=== PATIENT | male | born 1945 | race Two or more races ===

== ENCOUNTER 2018-05-27 17:04 | Inpatient (IN) | payer MEDICARE ==
[~2018-05-27] VITALS: Ht 175.3 cm; Wt 72.6 kg
--- NOTE | 2018-05-27 18:00 | NUR ---
DONAL from [facility] by [employer] unit 230 "increasing confusion-wanders into other peoples room". patient is confused. connected on the monitor. IV access on the RFA g20. On room air, breathing evenly and unlabored. kept comfortable. will continue to monitor accordingly.
--- NOTE | 2018-05-27 18:05 | NUR ---
urine collected and sent to lab.
[2018-05-27 18:38] LABS: BASOPHILS # (AUTO) 0.1 /CMM (0.0-0.2); HEMATOCRIT 45 % (39-51); HEMOGLOBIN 14.6 g/dL (13.5-17.5); LYMPHOCYTES # (AUTO) 1.6 /CMM (0.8-4.8); MEAN CORPUSCULAR HGB CONC 32 g/dl (31.0-36.0); MEAN CORPUSCULAR VOLUME 90 fL (80-96); MONOCYTES # (AUTO) 0.6 /CMM (0.1-1.30); MONOCYTES % (AUTO) 8.8 % (2.0-12.0); NEUTROPHILS # (AUTO) 4.4 /CMM (1.8-8.9); NEUTROPHILS % (AUTO) 64.2 % (43.0-81.0); PLATELET COUNT (AUTO) 197 /CMM (150-450); WHITE BLOOD COUNT (AUTO) 6.9 K/uL (4.3-11.0)
[2018-05-27 18:54] LABS: ALANINE AMINOTRANSFERASE 15 U/L (12-78); ALBUMIN 3.4 g/dL (3.4-5.0); ALCOHOL, BLOOD < 3 mg/dL (0-0); ALKALINE PHOSPHATASE 90 U/L (46-116); ASPARTATE AMINOTRANSFERASE 11 U/L (15-37); BILIRUBIN,DIRECT 0.1 mg/dL (0.0-0.2); BILIRUBIN,TOTAL 0.5 mg/dL (0.2-1.0); CALCIUM, SERUM 8.5 mg/dL (8.5-10.1); CARBON DIOXIDE 31 mmol/L (21-32); CHLORIDE 103 mmol/L (98-107); GLUCOSE 89 mg/dL (74-106); POTASSIUM 4.2 mmol/L (3.5-5.1); SODIUM SERUM 138 mmol/L (136-145); TOTAL PROTEIN, SERUM 7.1 g/dL (6.4-8.2); UREA NITROGEN, BLOOD 28 mg/dL (7-18)
[2018-05-27 19:04] LABS: ACETAMINOPHEN < 2 ug/ml (10-30); SALICYLATE 1.7 mg/dL (2.8-20.0)
[2018-05-27 19:19] LABS: APPEARANCE,URINE Clear (CLEAR); BILIRUBIN,URINE Negative (NEGATIVE); BLOOD, URINE Trace-intact Ery/uL (NEGATIVE); COLOR,URINE Yellow (YELLOW); KETONES,URINE Negative (NEGATIVE); LEUKOCYTE ESTERASE ,URINE Large (NEGATIVE); NITRITE, URINE Positive (NEGATIVE); PROTEIN,URINE Trace mg/dl (NEGATIVE); UGLUCOSE Negative (NEGATIVE); UROBILINOGEN,URINE 0.2 EU/dL (0.2)
[2018-05-27 19:20] LABS: BACTERIA,URINE 4+ /HPF (None Seen); SQUAMOUS EPITHELIAL CELL,UR Few /HPF (None Seen); WBC,URINE 21-50 /HPF (0-3)
--- NOTE | 2018-05-27 19:31 | NUR ---
report given to [facility] nurse for francisco.
--- NOTE | 2018-05-27 19:40 | NUR ---
PT APPEARS TO BE RESTING COMFORTABLY WITH NO S/S OF PAIN OR DISTRESS.
--- NOTE | 2018-05-27 20:10 | NUR ---
ANDREY PEREYRA, IS AT THE BEDSIDE SPEAKING TO THE PT.
[2018-05-27] MEDS ORDERED: LEVOFLOXACIN (750 MG) 750 MG TABLET ONE (20:14)
[2018-05-27] MEDS ORDERED: PROPOFOL 200 MG/20 ML VIAL IV ONE (20:30)
[2018-05-27] MEDS ORDERED: LEVOFLOXACIN (750 MG) 750 MG TABLET PO SCH (20:30)
--- NOTE | 2018-05-27 20:48 | NUR ---
EKG WAS CANCELLED. EKG NOT DONE.
[2018-05-27] MEDS ORDERED: IV NS 0.9% 1,000 ML BAG IV ONE (21:00)
--- NOTE | 2018-05-27 21:00 | NUR ---
MS/RN OPENING NOTES PT RECEIVED FROM ER VIA DANIELLE. A/OX2. ON ROOM AIR, BREATHING EVEN AND UNLABORED. IN NO ACUTE DISTRESS. DENIES SOB/PAIN. IV TO RFA PATENT AND INTACT. ORIENTED PT TO ROOM AND CALL LIGHT. SEMI FOWLERS. BED IN LOW/LOCKED POSITION WITH CALL LIGHT IN REACH. BILATERAL UPPER SIDE RAILS IN PLACE AND BED ALARM ON FOR SAFETY. WILL CONTINUE TO MONITOR
[2018-05-27 21:30] VITALS: BP_SYST 124; BP_DIAS 58; BP_DIAS 85
[2018-05-27] MEDS ORDERED: Z GUARD REMEDY 2 OZ OINT TP PRN (21:30)
[2018-05-27] MEDS ORDERED: ACETAMINOPHEN 325 MG TABLET PO PRN (21:30)
[2018-05-27] MEDS ORDERED: MAG HYDROX/AL HYDROX/SIMETH 30 ML UDC PO PRN (21:30)
[2018-05-27] MEDS ORDERED: DEXTROSE 50%-WATER 50 ML DISP.SYRIN IV PRN (21:30)
[2018-05-27] MEDS ORDERED: ONDANSETRON HCL/PF 4 MG/2 ML VIAL IVP PRN (21:30)
[2018-05-27] MEDS ORDERED: MAGNESIUM HYDROXIDE 30 ML UDC PO PRN (21:30)
--- NOTE | 2018-05-27 21:56 | NUR ---
MS/RN NOTES DR. RG AT BEDSIDE TO ASSESS PT.
[2018-05-27] MEDS ORDERED: ACET325C5 PO (22:15)
[2018-05-27] MEDS ORDERED: FOLI1TAB16 PO (22:15)
[2018-05-27] MEDS ORDERED: DEXT15DR6 EACHEYE (22:15)
[2018-05-27] MEDS ORDERED: LORA-258 PO (22:15)
[2018-05-27] MEDS ORDERED: MULT1TAB73 PO (22:15)
[2018-05-27] MEDS ORDERED: MEMA10TA PO (22:15)
[2018-05-27] MEDS ORDERED: RISP1TAB7 PO (22:15)
[2018-05-27] MEDS ORDERED: MAG30ORA PO (22:15)
[2018-05-27] MEDS ORDERED: TAMS-12 PO (22:15)
--- NOTE | 2018-05-27 22:30 | NUR ---
MS/RN NOTES DR. RG MADE AWARE THAT HOME MEDS WERE INPUTTED Addendum: 05/27/18 at 2249 by LEXX LAWLER RN PER DR. RG, NO NEED FOR IV FLUIDS AT THIS TIME
[2018-05-27] MEDS ORDERED: CEFTRIAXONE 1 G VIAL ONE (22:53)
[2018-05-27] MEDS: BLOOD SUGAR DIAGNOSTIC 1 EACH STRIP IN SCH (22:57)
[2018-05-27] MEDS: CEFTRIAXONE 1 G in IV D5W 50 ML IV SCH (22:57)
[2018-05-28] MEDS: INSULIN REGULAR, HUMAN 100 UNIT/ML 3 ML VIAL SQ PRN (06:44)
[2018-05-28] MEDS: BLOOD SUGAR DIAGNOSTIC 1 EACH STRIP IN SCH ×4 (06:44→22:16)
[2018-05-28 06:59] LABS: BASOPHILS % (AUTO) 0.4 % (0.0-2.0); EOSINOPHILS % (AUTO) 2.5 % (0.0-6.0); HEMATOCRIT 43 % (39-51); LYMPHOCYTES # (AUTO) 1.1 /CMM (0.8-4.8); MEAN CORPUSCULAR HGB CONC 33 g/dl (31.0-36.0); MEAN CORPUSCULAR VOLUME 89 fL (80-96); MONOCYTES # (AUTO) 0.6 /CMM (0.1-1.30); MONOCYTES % (AUTO) 8.1 % (2.0-12.0); NEUTROPHILS # (AUTO) 5.2 /CMM (1.8-8.9); PLATELET COUNT (AUTO) 183 /CMM (150-450); RED BLOOD CELL COUNT(AUTO) 4.79 MIL/uL (4.5-6.0); WHITE BLOOD COUNT (AUTO) 7.1 K/uL (4.3-11.0)
--- NOTE | 2018-05-28 07:00 | NUR ---
MS/RN CLOSING NOTES PT AWAKE, RESTING COMFORTABLY IN BED. A/OX2, CONFUSED. ON ROOM AIR, BREATHING EVEN AND UNLABORED. NO S/S OF SOB, DENIES PAIN, NO NO ACUTE DISTRESS. IV TO RFA PATENT AND INTACT. NO INSULIN COVERAGE DURING SHIFT. SNACKS PROVIDED. KEPT CLEAN AND DRY, TURNED/REPOSITIONED Q2H. NO SIGNIFICANT CHANGES OVERNIGHT. ALL NEEDS MET. REORIENTED PRN. BED IN LOW/LOCKED POSITION WITH CALL LIGHT IN REACH, BILATERAL UPPER SIDE RAILS IN PLACE AND BED ALARM ON. WILL ENDORSE TO DAY SHIFT RN MONTY.
[2018-05-28 07:18] LABS: CALCIUM, SERUM 8.3 mg/dL (8.5-10.1); CARBON DIOXIDE 28 mmol/L (21-32); CHLORIDE 106 mmol/L (98-107); GLUCOSE 80 mg/dL (74-106); MAGNESIUM 1.9 mg/dL (1.8-2.4); PHOSPHORUS 3.2 mg/dL (2.5-4.9); POTASSIUM 4.2 mmol/L (3.5-5.1); SODIUM SERUM 142 mmol/L (136-145); UREA NITROGEN, BLOOD 20 mg/dL (7-18)
[2018-05-28 07:52] LABS: CHOLESTEROL 149 mg/dL (<200); HDL CHOLESTEROL 35 mg/dL (40-60); LDL 102 mg/dL (0-99); TRIGLYCERIDES 116 mg/dL (30-150)
[2018-05-28 08:00] VITALS: BP 128/76
--- NOTE | 2018-05-28 08:00 | NUR ---
MS/RN OPENING NOTES PT A/OX2. ON ROOM AIR, BREATHING EVEN AND UNLABORED. IN NO ACUTE DISTRESS. DENIES SOB/PAIN. IV TO RFA PATENT AND INTACT. SEMI FOWLERS. BED IN LOW/LOCKED POSITION WITH CALL LIGHT IN REACH. BILATERAL UPPER SIDE RAILS IN PLACE AND BED ALARM ON FOR SAFETY. WILL CONTINUE TO MONITOR
--- NOTE | 2018-05-28 08:20 | NUR ---
PT HAS NO BIZARRE BEHAVIOR, LAUGHS BY HIMSELF,COOPERATIVE AND HAS NO SS/ OF PAIN OR DISTRESS.ASSISTED DURING AMBULATION IN THE RESTROOM.SEEN BY PFélix AND AMBULATED WITH FWW WITH STEADY GAIT.
--- NOTE | 2018-05-28 13:00 | NUR ---
NOTIFIED DR PAUL OF PT'S MED RECON- STILL PENDING.
--- NOTE | 2018-05-28 13:07 | NUR ---
PT CONFUSED HAS NO BIZARRE BEHAVIOR, LAUGHS BY HIMSELF,COOPERATIVE AND HAS NO SS/ OF PAIN OR DISTRESS.MORNING ADL CARE DONE.ASSISTED DURING AMBULATION IN THE RESTROOM.SEEN BY P.T. AND AMBULATED WITH FWW WITH STEADY GAIT.
[2018-05-28] MEDS: CLOTRIMAZOLE 1% 15 GM TUBE TP SCH ×2 (15:05→17:47)
[2018-05-28 16:00] VITALS: BP 124/65
[2018-05-28] MEDS: risperiDONE 1 MG TABLET PO SCH (17:46)
--- NOTE | 2018-05-28 18:00 | NUR ---
PT WAS EVALUATED BY DR CHAVEZ AND STATED THAT PT HAS NO S/S OF DEPRESSION AND PT VERBALLY DENIES DEPRESSION WELL.DR CHAVEZ REFUSED TO CALL THE FAMILY AND PRESCRIBE ANTIDEPRESSANT PER FAMILY REQUEST SINCE THE PT REFUSED ANTIDEPRESSANTS WELL. Addendum: 05/28/18 at 1999 by ROBBIN LU RN PLS IGNORE ABOVE NOTES-DOCUMENTED ON THE WRONG PT
--- NOTE | 2018-05-28 18:30 | NUR ---
PT IS RESTING CALMLY IN BED AND TOLERATING MEALS CONSUMING 100% WITH VERY GOOD APPETITE.ENCOURAGED INCREASE FLUID INTAKE.NO BIZARRE BEHAVIOR THROUGHOUT THE SHIFT.WILL CONTINUE TO MONITOR.
--- NOTE | 2018-05-28 19:00 | NUR ---
PT COMFORTABLY RESTING IN BED SURROUNDED BY HER FAMILY MEMBERS.UPDATED FAMILY ON PT'S CONDITION.DENIES PAIN OR DISTRESS.PT WILL BE FOR PT EVAL TOMORROW.WBAT.CALL LIGHT PLACED WITHIN REACH. Addendum: 05/28/18 at 2001 by ROBBIN LU RN PLS IGNORE ABOVE NOTES-DOCUMENTED ON THE WRONG PT
--- NOTE | 2018-05-28 19:30 | NUR ---
RECEIVED PATIENT IN BED AWAKE. AO X 1, VERBALLY RESPONSIVE, UNCLEAR SPEECH. NO ACUTE DISTRESS NOTED. NO SIGN OF PAIN NOTED. IV SITE PATENT, INTACT; FLUSHED. SAFETY REMINDERS GIVEN. ON LOW BED WITH BILATERAL UPPER SIDE RAILS UP. CALL DOCKERY WITHIN EASY REACH. WILL CONTINUE TO MONITOR.
[2018-05-28 20:00] VITALS: BP_SYST 120; BP_SYST 129; BP_DIAS 66
[2018-05-28] MEDS: MEMANTINE HCL 5 MG TABLET PO SCH (21:11)
[2018-05-28] MEDS: CEFTRIAXONE 1 G in IV D5W 50 ML IV SCH (21:11)
[2018-05-28] MEDS: ZOLPIDEM TARTRATE 5 MG TABLET PO PRN (22:04)
--- NOTE | 2018-05-28 22:08 | NUR ---
PATIENT BECAME VERY COMBATIVE, WANTED TO GO OTHER PATIENTS' ROOMS, TRIED TO HIT STAFF. SECURITY CALLED. NOTIFIED DR. RG; WITH NEW ORDER FOR ATIVAN 1 MG PO X 1; NOTED AND CARRIED OUT.
[2018-05-28] MEDS ORDERED: LORAZEPAM 1 MG TABLET PO ONE (22:30)
--- NOTE | 2018-05-29 06:00 | NUR ---
PATIENT ASLEEP, EASILY AROUSABLE. RESPIRATIONS EVEN. NO SIGNS OF PAIN NOTED. DUE MEDS GIVEN WITH NO ASE NOTED. NEEDS ATTENDED. PATIENT KEPT, CLEAN, DRY, AND COMFORTABLE. SAFETY PRECAUTIONS AND COMFORT MEASURES IN PLACE. WILL GIVE REPORT TO DAY SHIFT FOR CONTINUITY OF CARE.
[2018-05-29] MEDS: HYDROCODONE/APAP 5/325MG 1 EACH TABLET PO PRN ×2 (06:34→17:04)
[2018-05-29] MEDS: BLOOD SUGAR DIAGNOSTIC 1 EACH STRIP IN SCH ×4 (06:56→21:25)
[2018-05-29 07:13] LABS: BASOPHILS % (AUTO) 0.6 % (0.0-2.0); EOSINOPHILS % (AUTO) 2.6 % (0.0-6.0); HEMATOCRIT 44 % (39-51); HEMOGLOBIN 14.4 g/dL (13.5-17.5); LYMPHOCYTES # (AUTO) 1.2 /CMM (0.8-4.8); LYMPHOCYTES % (AUTO) 18.5 % (20.0-44.0); MEAN CORPUSCULAR HGB CONC 33 g/dl (31.0-36.0); MEAN CORPUSCULAR VOLUME 89 fL (80-96); MONOCYTES # (AUTO) 0.5 /CMM (0.1-1.30); NEUTROPHILS # (AUTO) 4.6 /CMM (1.8-8.9); NEUTROPHILS % (AUTO) 70.3 % (43.0-81.0); PLATELET COUNT (AUTO) 188 /CMM (150-450); RED BLOOD CELL COUNT(AUTO) 4.97 MIL/uL (4.5-6.0); WHITE BLOOD COUNT (AUTO) 6.5 K/uL (4.3-11.0)
[2018-05-29 07:43] LABS: CALCIUM, SERUM 8.5 mg/dL (8.5-10.1); CARBON DIOXIDE 30 mmol/L (21-32); CHLORIDE 105 mmol/L (98-107); CREATININE 1.1 mg/dL (0.6-1.3); GLUCOSE 81 mg/dL (74-106); MAGNESIUM 1.9 mg/dL (1.8-2.4); PHOSPHORUS 3.7 mg/dL (2.5-4.9); POTASSIUM 4.3 mmol/L (3.5-5.1); SODIUM SERUM 141 mmol/L (136-145); UREA NITROGEN, BLOOD 20 mg/dL (7-18)
[2018-05-29 08:00] VITALS: BP 111/65
--- NOTE | 2018-05-29 08:00 | NUR ---
MS/RN OPENING NOTES PT A/OX2. ON ROOM AIR, BREATHING EVEN AND UNLABORED. IN NO ACUTE DISTRESS.NO S/S OF SOB/PAIN. TALKING TO HIMSELF.IV TO RFA PATENT AND INTACT. SEMI FOWLERS. AMBULATES TO THE TOILET WITH ASSIST DUE TO UNSTEADY GAIT.VOIDED TO THE TOILET WITH INCONTINENT EPISODES OF LARGE AMOUNT OF SOAKED YELLOW URINE DIAPER.BED IN LOW/LOCKED POSITION WITH CALL LIGHT IN REACH. BILATERAL UPPER SIDE RAILS IN PLACE AND BED ALARM ON FOR SAFETY. WILL CONTINUE TO MONITOR
[2018-05-29] MEDS: risperiDONE 1 MG TABLET PO SCH ×2 (08:06→17:05)
[2018-05-29] MEDS: MEMANTINE HCL 5 MG TABLET PO SCH ×2 (08:06→21:28)
[2018-05-29] MEDS: CLOTRIMAZOLE 1% 15 GM TUBE TP SCH ×2 (08:07→17:06)
[2018-05-29] MEDS ORDERED: LORAZEPAM 1 MG TABLET PO PRN (11:30)
[2018-05-29] MEDS ORDERED: MAG HYDROX/AL HYDROX/SIMETH 30 ML UDC PO PRN (16:00)
[2018-05-29] MEDS ORDERED: LORAZEPAM 0.5 MG TABLET PO PRN (16:00)
[2018-05-29] MEDS ORDERED: Medication Not On Formulary EA (Memantine Hcl (Namenda) 1 TAB) PO SCH (17:00)
[2018-05-29] MEDS: FOLIC ACID 1 MG TABLET PO SCH (17:04)
[2018-05-29] MEDS: MULTIVITAMINS,THERAGRAN 1 UDTAB TABLET PO SCH (17:05)
--- NOTE | 2018-05-29 18:01 | NUR ---
PT RESTING COMFORTABLY IN BED.COOPERATIVE AND PLEASANT WITH MEDS.NO BIZARRE EPISODE OCCURRED DURING THE SHIFT.NO S/S OF PAIN OR DISTRESS.WILL CONTINUE TO MONITOR.NEEDS ANTICIPATED AND ATTENDED.CALL LIGHT WITHIN REACH.
--- NOTE | 2018-05-29 19:30 | NUR ---
RECEIVED PATIENT IN BED ASLEEP, EASILY AROUSABLE. AO X 1, RESPONSIVE. NO ACUTE DISTRESS NOTED. NO SIGNS OF PAIN NOTED. IV SITE PATENT, INTACT; FLUSHED. SAFETY REMINDERS GIVEN. ON LOW BED WITH BILATERAL UPPER SIDE RAILS UP. CALL DOCKERY WITHIN EASY REACH. WILL CONTINUE TO MONITOR.
[2018-05-29 20:00] VITALS: BP 94/48
[2018-05-29] MEDS: ZOLPIDEM TARTRATE 5 MG TABLET PO PRN (21:28)
[2018-05-29] MEDS: CEFTRIAXONE 1 G in IV D5W 50 ML IV SCH (21:28)
[2018-05-29 21:49] VITALS: BP 91/48
[2018-05-29] MEDS ORDERED: TAMSULOSIN 0.4 MG CAP.SR.24H PO SCH (22:00)
--- NOTE | 2018-05-30 06:00 | NUR ---
PATIENT ASLEEP, EASILY AROUSABLE. RESPIRATIONS EVEN. NO SIGNS OF PAIN NOTED. NO SYMPTOMS OF HYPER/HYPOGLYCEMIA. DUE MEDS GIVEN WITH NO ASE NOTED. NEEDS ATTENDED. KEPT CLEAN, DRY, AND COMFORTABLE. SAFETY PRECAUTIONS AND COMFORT MEASURES IN PLACE. WILL GIVE REPORT TO DAY SHIFT FOR CONTINUITY OF CARE.
[2018-05-30 06:31] LABS: BASOPHILS % (AUTO) 0.7 % (0.0-2.0); CALCIUM, SERUM 8.3 mg/dL (8.5-10.1); CARBON DIOXIDE 29 mmol/L (21-32); CHLORIDE 105 mmol/L (98-107); EOSINOPHILS % (AUTO) 3.9 % (0.0-6.0); GLUCOSE 87 mg/dL (74-106); HEMATOCRIT 44 % (39-51); HEMOGLOBIN 14.3 g/dL (13.5-17.5); LYMPHOCYTES # (AUTO) 1.2 /CMM (0.8-4.8); LYMPHOCYTES % (AUTO) 19.7 % (20.0-44.0); MAGNESIUM 1.9 mg/dL (1.8-2.4); MEAN CORPUSCULAR HGB CONC 33 g/dl (31.0-36.0); MEAN CORPUSCULAR VOLUME 89 fL (80-96); MONOCYTES # (AUTO) 0.5 /CMM (0.1-1.30); MONOCYTES % (AUTO) 8.7 % (2.0-12.0); NEUTROPHILS # (AUTO) 4.1 /CMM (1.8-8.9); PHOSPHORUS 4.3 mg/dL (2.5-4.9); PLATELET COUNT (AUTO) 172 /CMM (150-450); POTASSIUM 4.2 mmol/L (3.5-5.1); SODIUM SERUM 141 mmol/L (136-145); UREA NITROGEN, BLOOD 26 mg/dL (7-18); WHITE BLOOD COUNT (AUTO) 6.2 K/uL (4.3-11.0)
[2018-05-30] MEDS: BLOOD SUGAR DIAGNOSTIC 1 EACH STRIP IN SCH ×3 (06:42→17:54)
--- NOTE | 2018-05-30 07:34 | NUR ---
MS RN OPENING NOTES RECEIVED PT AWAKE IN BED IN NO ACUTE SIGNS OF DISTRESS. HOB ELEVATED. A/O X1. CALMED AND QUIET WITH NO SIGNS OF PAIN OR DISCOMFORTS OBSERVED AT THIS TIME. ON ROOM AIR, BREATHING EVEN AND UNLABORED. IV ACCESS ON RIGHT HAND INTACT AND PATENT, FLUSHES WELL. SAFETY MEASURES IN PLACE. BED IN LOW LOCKED POSITION WITH SIDE-RAILS UP X2. CALL LIGHT IN REACH. WILL CONTINUE TO MONITOR PT ACCORDINGLY.
[2018-05-30 08:00] VITALS: BP 101/58
[2018-05-30] MEDS: MULTIVITAMINS,THERAGRAN 1 UDTAB TABLET PO SCH (08:26)
[2018-05-30] MEDS: risperiDONE 1 MG TABLET PO SCH ×2 (08:26→16:14)
[2018-05-30] MEDS: FOLIC ACID 1 MG TABLET PO SCH (08:26)
[2018-05-30] MEDS: MEMANTINE HCL 5 MG TABLET PO SCH ×2 (08:26→20:05)
[2018-05-30] MEDS: CLOTRIMAZOLE 1% 15 GM TUBE TP SCH ×2 (08:27→16:14)
[2018-05-30] MEDS ORDERED: RISP1TAB7 PO (10:24)
[2018-05-30] MEDS ORDERED: AMOX-427 PO (10:24)
[2018-05-30] MEDS ORDERED: CLOT15CR35 TP (10:24)
--- NOTE | 2018-05-30 12:24 | NUR ---
RN NOTES PT NOTED WITH BS OF 58 MGDL, REJECTED AND RECHECKED AND WAS 65MGDL. ORANGE JUICE GIVEN AND THEN FOLLOWED WITH HIS LUNCH TRAY AND ENCOURAGED PT TO EAT WELL. WILL CONTINUE TO MONITOR.
[2018-05-30] MEDS: INSULIN REGULAR, HUMAN 100 UNIT/ML 3 ML VIAL SQ PRN ×2 (12:30→17:54)
--- NOTE | 2018-05-30 14:36 | NUR ---
RN NOTES PATIENT FOR DISCHARGE THIS AFTERNOON TO [facility], REPORT GIVEN TO NURSE DUCKWORTH. CALLED AND LEFT MESSAGE TO JV MAZA ( PT'S PERSON TO NOTIFY) AT TEL # [phone]
[2018-05-30 16:00] VITALS: BP 112/63
--- NOTE | 2018-05-30 18:48 | NUR ---
MS RN CLOSING NOTES PT ASLEEP IN BED AT THIS TIME, EASILY AROUSABLE. HOB ELEVATED. ON ROOM AIR, BREATHING EVEN AND UNLABORED. IV ACCESS ON RIGHT HAND INTACT AND PATENT, FLUSHES WELL. ALL SAFETY MEASURES IN PLACE. BED IN LOW LOCKED POSITION WITH SIDE-RAILS UP X2. CALL LIGHT IN REACH. PT SUPPOSED TO BE DISCHARGED BACK TO [facility] AT 1500 BUT THE AMBULANCE BROKE DOWN, JACIEL HARDING STATED THAT AMBULANCE WILL COME TONIGHT TO TRANSPORT PT. WILL ENDORSE TO THEATRE PROFESSOR NURSE TO F/U TRANSPORTATION.
--- NOTE | 2018-05-30 19:45 | NUR ---
MS QUINTANILLA OPENING NOTES: RECEIVED PT ON ROOM AIR AND IS TOLERATING WELL. PT IS A/OX1. PT AWAITING FOR BUTT SAWYER BY AUSTYN. IV REMAINS INTACT. CURRENTLY H/L. BED ALARM ACTIVATED. BED KEPT IN LOW, LOCKED POSITION, AND SIDE RAILS X 2UP. WILL CONTINUE TO MONITOR PT. Addendum: 05/30/18 at 2125 by KAITLYN LOCKE RN PT DRINKING ORANGE JUICE.
--- NOTE | 2018-05-30 20:20 | NUR ---
MS RN NOTES: [id number] 6 MINUTES ETA.
[2018-05-30 20:37] VITALS: BP 92/49
[2018-05-30 20:44] VITALS: BP 115/69
--- NOTE | 2018-05-30 20:44 | NUR ---
MS RN NOTES: CLUB DIRECTOR AT BEDSIDE. IV REMOVED. PT TO GO BACK TO [facility].
--- NOTE | 2018-05-30 20:51 | NUR ---
MS QUINTANILLA NOTES: PT LEFT WITH [facility] TO GO TO [facility]. Addendum: 05/30/18 at 2124 by KAITLYN LOCKE RN BELONGINGS/PACKET TAKEN WITH DIVISION LEADER.
== END 2018-05-30 20:50 | DRG 689 ==
LOC: ER 17:06 → MEDSG2 20:40
PROVIDERS: ATTEND Student in an Organized Health Care Education/Training Program
DX: N39.0 Urinary tract infection, site not specified (principal); G93.41 Metabolic encephalopathy; F03.91 Unspecified dementia, unspecified severity, with behavioral disturbance; F23 Brief psychotic disorder; E11.9 Type 2 diabetes mellitus without complications; I10 Essential (primary) hypertension; J44.9 Chronic obstructive pulmonary disease, unspecified; E78.5 Hyperlipidemia, unspecified; R26.9 Unspecified abnormalities of gait and mobility; L30.4 Erythema intertrigo; R39.2 Extrarenal uremia; B35.6 Tinea cruris; B95.1 Streptococcus, group B, as the cause of diseases classified elsewhere
CPT/HCPCS: 36415; 80048-TC; 80061-TC; 80076-TC; 80305; 81000-TC; 82962-TC; 83735-TC; 84100-TC; 85025-TC; 87081-TC; 87086-TC; G0378; G0480; J0696; J1815; J7030; J7050; J7060

== ENCOUNTER 2018-09-07 15:02 | Inpatient (IN) | payer MEDICARE, MEDICAID ==
[2018-09-07] VITALS (15 sets, daily range): BP systolic 78–145; BP diastolic 37–98
[~2018-09-07] VITALS: Ht 182.9 cm; Wt 77.6 kg
[~2018-09-07 15:02] MED LIST: ACET325C5 PO; AMOX-427 PO; CLOT15CR35 TP; DEXT15DR6 EACHEYE; FOLI1TAB16 PO; LORA-258 PO; MAG30ORA PO; MEMA10TA PO; MULT1TAB73 PO; RISP1TAB7 PO; TAMS-12 PO
--- NOTE | 2018-09-07 15:15 | NUR ---
YORDY, FROM [facility], C/O COUGH WITH CONGESTION SINCE THIS MORNING. TO ER BED 4, O2 SATURATION PER REPORT BEFORE BRINGING PT IN ED WAS 90%, HOOKED TO MONITOR, CHANGED TO GOWN, PROVIDED W WARM BLANKET, AT OXYGEN VIA NC AT 2LPM, O2 SATURATION UPON ARRIVAL AT 94% AWAITING MD FORBES.
--- NOTE | 2018-09-07 15:16 | NUR ---
DR DIAZ AT BEDSIDE
[2018-09-07] MEDS ORDERED: ALBUTEROL FS 2.5 MG/3 ML VIAL.NEB ONE (15:17)
[2018-09-07] MEDS ORDERED: IPRATROPIUM NEB FS 0.5 MG/2.5 ML AMPUL.NEB ONE (15:17)
[2018-09-07 15:27] LABS: BASOPHILS # (AUTO) 0.3 /CMM (0.0-0.2); BASOPHILS % (AUTO) 2.3 % (0.0-2.0); EOSINOPHILS % (AUTO) 0.3 % (0.0-6.0); HEMATOCRIT 41 % (39-51); LYMPHOCYTES # (AUTO) 0.7 /CMM (0.8-4.8); LYMPHOCYTES % (AUTO) 5.1 % (20.0-44.0); MEAN CORPUSCULAR HGB CONC 32 g/dl (31.0-36.0); MEAN CORPUSCULAR VOLUME 91 fL (80-96); MONOCYTES % (AUTO) 7.3 % (2.0-12.0); NEUTROPHILS # (AUTO) 11.2 /CMM (1.8-8.9); PLATELET COUNT (AUTO) 268 /CMM (150-450); RED BLOOD CELL COUNT(AUTO) 4.48 MIL/uL (4.5-6.0); WHITE BLOOD COUNT (AUTO) 13.1 K/uL (4.3-11.0)
[2018-09-07] MEDS ORDERED: POLY15DR40 EACHEYE (15:29)
[2018-09-07] MEDS ORDERED: RISP0.253 PO (15:29)
[2018-09-07] MEDS ORDERED: ALBUTEROL FS 2.5 MG/3 ML VIAL.NEB NEB ONE (15:30)
[2018-09-07] MEDS ORDERED: IPRATROPIUM NEB FS 0.5 MG/2.5 ML AMPUL.NEB NEB ONE (15:30)
--- NOTE | 2018-09-07 15:30 | NUR ---
ONGOING BREATHING TREATMENT
[2018-09-07 15:36] LABS: CALCIUM, SERUM 7.9 mg/dL (8.5-10.1); CARBON DIOXIDE 33 mmol/L (21-32); CREATININE 1.6 mg/dL (0.6-1.3); GLUCOSE 106 mg/dL (74-106); UREA NITROGEN, BLOOD 35 mg/dL (7-18)
[2018-09-07 16:02] LABS: CHLORIDE 101 mmol/L (98-107); POTASSIUM 5.5 mmol/L (3.5-5.1); SODIUM SERUM 137 mmol/L (136-145)
--- NOTE | 2018-09-07 16:09 | NUR ---
VAN WAS CALLED. WAS PAGED
[2018-09-07] MEDS ORDERED: IV NS 0.9% 1,000 ML BAG IV ONE ×2 (16:30→19:00)
[2018-09-07] MEDS ORDERED: VANCOMYCIN 1 GM in IV D5W 250 ML IV ONE (16:30)
[2018-09-07] MEDS ORDERED: PIPERACILLIN /TAZOBACTAM 3.375 G in IV D5W 50 ML IV ONE (16:30)
--- NOTE | 2018-09-07 16:52 | NUR ---
MS BED 116-1 GIVEN
[2018-09-07] MEDS ORDERED: MAG HYDROX/AL HYDROX/SIMETH 30 ML UDC PO PRN ×2 (17:00→17:30)
[2018-09-07] MEDS ORDERED: IV NS 0.9% 1,000 ML IV PRN (17:02)
--- NOTE | 2018-09-07 17:21 | NUR ---
MS BED WAS CHANGED TO 109
--- NOTE | 2018-09-07 17:29 | NUR ---
REPORT GIVEN TO KAYE QUINTANILLA OF MED-SURG UNIT.
[2018-09-07] MEDS ORDERED: ZOLPIDEM TARTRATE 5 MG TABLET PO PRN (17:30)
[2018-09-07] MEDS ORDERED: FEE PK DOSING 1 MIN EA MC ONE (17:30)
[2018-09-07] MEDS ORDERED: MAGNESIUM HYDROXIDE 30 ML UDC PO PRN (17:30)
[2018-09-07] MEDS ORDERED: ONDANSETRON HCL/PF 4 MG/2 ML VIAL IVP PRN (17:30)
[2018-09-07] MEDS ORDERED: ACETAMINOPHEN 325 MG TABLET PO PRN (17:30)
[2018-09-07] MEDS ORDERED: HYDROCODONE/APAP 5/325MG 1 EACH TABLET PO PRN (17:30)
--- NOTE | 2018-09-07 17:30 | NUR ---
REPORT GIVEN TO RAY QUINTANILLA FOR MONTY
--- NOTE | 2018-09-07 17:40 | NUR ---
NOTED WITH DESATURATION OF 84% AT O2 VIA NC AT 3LPM, ABG DONE, CO2 OF 95, DR ORDERED ICU BED FOR PT
--- NOTE | 2018-09-07 17:46 | NUR ---
CALLED [facility] TO PAGE SALES OFFICE ADMINISTRATOR DR FOR AN UPDATE
[2018-09-07 17:55] LABS: ABG BASE EXCESS 0.4 mmol/L; ABG OXYGEN SATURATION 92.5 % (92.0-98.5); ABG PCO2 95.8 mmHg (35.0-45.0); ABG PH 7.144 (7.350-7.450); ABG PO2 79.6 mmHg (75.0-100.0); COHb 0.7 % (0.5-1.5); MetHb 0.6 % (0.0-1.5); O2Hb 91.3 % (94.0-97.0); SITE, ABG Right Radial; VENT MODE, BG Nasal Cannula
--- NOTE | 2018-09-07 18:10 | NUR ---
INFORMED DR DIAZ OF BP AT 81/47, DR DIAZ AT BEDSIDE FOR INTUBATION.
--- NOTE | 2018-09-07 18:15 | NUR ---
RT PT O2 SPO2 WAS DROPPING. PLACED ON NRB. DR DIAZ REQUESTED ABG. ABG DONE AND RESULTS RELAYED TO DR. DIAZ. PER ER MD PLACED PT ON BIPAP. PTS BP WAS DROPPING. ER MD AWARE, ER MD WANTS PT INTUBATED. PT ORALLY INTUBATED WITH 7.5 ETT MARKED @ 23CM LIP. BILATERAL B/S POSITIVE CO2 COLOR CHANGED. VENT SETTINGS PER MD ORDER. VENT ALARMS CHECKED AND AUDIBLE. VENT PLUGGED IN RED OUTLET. AMBU BAG NOTED HOB. WILL ENDORSE TO NOC RT.
--- NOTE | 2018-09-07 18:24 | NUR ---
DR WELLER AT BEDSIDE FOR INSERTION OF CENTRAL LINE.
[2018-09-07] MEDS ORDERED: MIDAZOLAM HCL 100 MG in IV NS 0.9% 80 ML IV PRN ×2 (18:30→19:00)
[2018-09-07] MEDS ORDERED: FENTANYL CITRATE IV 1,250 MCG in IV NS 0.9% 250ML IV PRN (18:30)
--- NOTE | 2018-09-07 18:38 | NUR ---
CENTRAL VENOUS CATHETER @ RIGHT JV, SAÚL
--- NOTE | 2018-09-07 18:41 | NUR ---
GOT ICU BED FROM ALEXANDRE Toney
[2018-09-07] MEDS ORDERED: FENTANYL PF 100MCG/2ML AMPUL IV STA (18:43)
--- NOTE | 2018-09-07 18:59 | NUR ---
WHEELED OUT VIA RNEY FOR CT SCAN
[2018-09-07] MEDS ORDERED: IOHEXOL-350 100 ML VIAL IV ONE (19:00)
[2018-09-07] MEDS ORDERED: NOREPINEPHRINE 8 MG in IV D5W 500 ML IV ONE (19:00)
[2018-09-07] MEDS ORDERED: MIDAZOLAM HCL 2 MG/2ML VIAL IV ONE (19:00)
[2018-09-07] MEDS ORDERED: ROCURONIUM BROMIDE 100 MG/10 ML VIAL IV ONE (19:00)
[2018-09-07] MEDS ORDERED: CT SWABBABLE VALVE TRANS SET 1 EA INFUS.SET MC ONE (19:00)
[2018-09-07] MEDS ORDERED: ETOMIDATE 2 MG/ML VIAL IV ONE ×2 (19:00→22:00)
[2018-09-07] MEDS ORDERED: FENTANYL CITRAT IV 2,500 MCG in IV NS 0.9% 200 ML IV PRN (19:00)
[2018-09-07] MEDS ORDERED: IV NS 0.9% 250 ML IV ONE (19:01)
--- NOTE | 2018-09-07 19:21 | NUR ---
ICU BED CHANGED TO 260
--- NOTE | 2018-09-07 19:30 | NUR ---
ett advanced 1 cm per md verbal order Addendum: 09/07/18 at 2030 by RAAD MURPHY Amended: Links added.
--- NOTE | 2018-09-07 19:31 | NUR ---
REPORT GIVEN TO MINOR QUINTANILLA OF ICU
[2018-09-07] MEDS ORDERED: FENTANYL PF 100MCG/2ML AMPUL ONE (19:34)
[2018-09-07] MEDS ORDERED: MIDAZOLAM HCL 2 MG/2ML VIAL ONE (19:34)
--- NOTE | 2018-09-07 20:10 | NUR ---
pt transported to icu Addendum: 09/07/18 at 2030 by RAAD MCDOWELL RT Amended: Links added.
[2018-09-07] MEDS: PROPOFOL 100 ML IV PRN (20:27)
--- NOTE | 2018-09-07 20:29 | NUR ---
pt transported to ct via ambu bag Addendum: 09/07/18 at 2030 by RAAD MCDOWELL RT Amended: Links added.
--- NOTE | 2018-09-07 20:30 | NUR ---
AUTO TRANSMISSION TECHNICIAN NOTES DR JUDD AT BEDSIDE, NOTIFIED REGARDING PATIENT WAKING UP/AGITATED/BITING ET TUBE. PER DUTCH, START PROPOFOL GTT. ALSO WITH NEW ORDER FOR BILATERAL SOFT WRIST RESTRAINTS FOR PATIENT SAFETY DUE TO RISK FOR SELF EXTUBATION
[2018-09-07] MEDS ORDERED: CEFEPIME 1 GM VIAL ONE (20:45)
[2018-09-07] MEDS: CEFEPIME 2 GM in IV D5W 100 ML IV SCH (20:48)
[2018-09-07] MEDS ORDERED: ENOXAPARIN SODIUM 40 MG/0.4 ML DISP.SYRIN SQ SCH (21:00)
--- NOTE | 2018-09-07 21:00 | NUR ---
DISABILITY INSURANCE CLAIM EXAMINER NOTES FENTANYL AND VERSED IV PUSH (ER ORDERS) NON-ADMINISTERED DUE TO CHANGE IN ORDER FOR PROPOFOL FOR SEDATION. CONFIRMED WITH ER NURSE CHELSEY THAT THESE MEDICATIONS WERE NOT YET ADMINISTERED. ALSO CONFIRMED WITH NURSE BARBOSA THAT RISPERDAL 2MG HAS NOT YET BEEN ADMINISTERED. OVERRIDE FOR RISPERDAL 0.25MG X 1TAB DONE BY BRITTANY CHARGE NURSE JENNIFER, ONLY 7 TABS AVAILABLE IN ICU OMNICELL. WILL ADMINISTER MEDICATION ORDERED
[2018-09-07 21:03] LABS: ABG BASE EXCESS 1.4 mmol/L; ABG OXYGEN SATURATION 98.7 % (92.0-98.5); ABG PH 7.412 (7.350-7.450); ABG PO2 157.6 mmHg (75.0-100.0); AaDO2 151.7 mmHg; COHb 0.7 % (0.5-1.5); MetHb 0.6 % (0.0-1.5); O2Hb 97.4 % (94.0-97.0); PEEP,BG 5 cm H2O; SITE, ABG Right Brachial
[2018-09-07] MEDS ORDERED: risperiDONE 0.25 MG TABLET PO ONE (21:06)
[2018-09-07] MEDS: risperiDONE 0.25 MG TABLET PO SCH (21:09)
[2018-09-07] MEDS ORDERED: ROCURONIUM BROMIDE 50 MG/5 ML IV ONE (22:00)
--- NOTE | 2018-09-07 23:00 | NUR ---
MODEL DRESSER NOTES PATIENT NOTED WITH PERSISTENT HYPOTENSION. LATEST READING 82/57. SAHIL WILL NP MADE AWARE WITH NEW ORDER TO START LEVOPHED GTT. WILL CARRY OUT NEW ORDER AND MONITOR VITAL SIGNS CLOSELY
[2018-09-07] MEDS ORDERED: NOREPINEPHRINE 4 MG/4 ML AMPUL IV ONE (23:13)
[2018-09-07] MEDS: TAMSULOSIN 0.4 MG CAP.SR.24H PO SCH (23:21)
[2018-09-07] MEDS: NOREPINEPHRINE 8 MG in IV D5W 500 ML IV PRN (23:22)
[2018-09-08] VITALS (85 sets, daily range): BP systolic 86–130; BP diastolic 48–79
--- NOTE | 2018-09-08 | NUR ---
OIL BURNER SERVICER AND INSTALLER NOTES FIO2 TITRATED DOWN TO 40% BY RT SHANKAR
[2018-09-08] MEDS ORDERED: VANCOMYCIN 1 GM VIAL ONE (03:22)
[2018-09-08] MEDS: PROPOFOL 100 ML IV PRN ×5 (03:34→21:17)
[2018-09-08] MEDS: VANCOMYCIN 0.75 GM in IV D5W 250 ML IV SCH ×2 (03:35→16:37)
[2018-09-08 04:39] LABS: BASOPHILS # (AUTO) 0.1 /CMM (0.0-0.2); BASOPHILS % (AUTO) 0.5 % (0.0-2.0); EOSINOPHILS % (AUTO) 0.5 % (0.0-6.0); HEMATOCRIT 38 % (39-51); HEMOGLOBIN 12.5 g/dL (13.5-17.5); LYMPHOCYTES # (AUTO) 0.7 /CMM (0.8-4.8); LYMPHOCYTES % (AUTO) 7.2 % (20.0-44.0); MEAN CORPUSCULAR HGB CONC 33 g/dl (31.0-36.0); MEAN CORPUSCULAR VOLUME 89 fL (80-96); MONOCYTES # (AUTO) 0.8 /CMM (0.1-1.30); MONOCYTES % (AUTO) 7.5 % (2.0-12.0); NEUTROPHILS # (AUTO) 8.7 /CMM (1.8-8.9); NEUTROPHILS % (AUTO) 84.3 % (43.0-81.0); PLATELET COUNT (AUTO) 272 /CMM (150-450); WHITE BLOOD COUNT (AUTO) 10.3 K/uL (4.3-11.0)
[2018-09-08 04:57] LABS: CHOLESTEROL 108 mg/dL (<200); HDL CHOLESTEROL 25 mg/dL (40-60); LDL 80 mg/dL (0-99); TRIGLYCERIDES 120 mg/dL (30-150)
[2018-09-08 04:59] LABS: ALANINE AMINOTRANSFERASE 28 U/L (12-78); ALBUMIN 2.4 g/dL (3.4-5.0); ALKALINE PHOSPHATASE 79 U/L (46-116); ASPARTATE AMINOTRANSFERASE 22 U/L (15-37); BILIRUBIN,TOTAL 0.7 mg/dL (0.2-1.0); CALCIUM, SERUM 7.6 mg/dL (8.5-10.1); CARBON DIOXIDE 28 mmol/L (21-32); CHLORIDE 104 mmol/L (98-107); CREATININE 1.3 mg/dL (0.6-1.3); GLUCOSE 163 mg/dL (74-106); MAGNESIUM 2.2 mg/dL (1.8-2.4); PHOSPHORUS 2.3 mg/dL (2.5-4.9); POTASSIUM 4.7 mmol/L (3.5-5.1); SODIUM SERUM 138 mmol/L (136-145); UREA NITROGEN, BLOOD 26 mg/dL (7-18)
--- NOTE | 2018-09-08 06:00 | NUR ---
DIRECTOR OF EMPLOYEE DEVELOPMENT NOTES TROPONIN NOW 1.720. SAHIL WILL PHOTONICS ENGINEER NOTIFIED. PHOTONICS ENGINEER WITH ORDER TO RECHECK TROPONIN IN 6 HOURS. WILL CARRY OUT NEW ORDERS
--- NOTE | 2018-09-08 07:15 | NUR ---
ICU/RN: Pt received, no distress noted, tolerating current vent settings. Easily arousable by light touch. R IJ TLC patent, flushed. Dressing C/D/I. Condom cath to gravity. Safety measures in place, will cont to monitor pt.
[2018-09-08] MEDS: MEMANTINE HCL 5 MG TABLET PO SCH ×2 (08:07→16:20)
[2018-09-08] MEDS: FOLIC ACID 1 MG TABLET PO SCH (08:07)
[2018-09-08] MEDS: risperiDONE 0.25 MG TABLET PO SCH ×2 (08:07→16:20)
--- NOTE | 2018-09-08 08:15 | NUR ---
RT PATIENT REC'D ORALLY INTUBATED 7.5ETT SECURED AT 23CM VIA ANCHOR FAST ON [facility] VENT WITH ORDERED SETTINGS JOHNSON WELL. VENT ALARMS CHECKED AND AUDIBLE. PATIENT SEDATED, APPEARS COMFORTABLE, ZERO SOB NOTED. PATIENT SUCTIONED WITH SMALL AMT OF PALE SEMITHICK SECRETIONS. B/S DIM. AMBU BAG AT [facility]. Addendum: 09/08/18 at 0816 by CARRINGTON ANDREW RT Amended: Links added.
[2018-09-08] MEDS: CEFEPIME 2 GM in IV D5W 100 ML IV SCH ×2 (08:42→21:05)
[2018-09-08 08:48] LABS: ABG BASE EXCESS 1.3 mmol/L; ABG OXYGEN SATURATION 98.2 % (92.0-98.5); ABG PCO2 31.2 mmHg (35.0-45.0); ABG PH 7.499 (7.350-7.450); AaDO2 132.3 mmHg; COHb 0.5 % (0.5-1.5); MetHb 0.6 % (0.0-1.5); O2Hb 97.1 % (94.0-97.0); SITE, ABG Right Radial; VENT MODE, BG AC 18 550 40% +5
--- NOTE | 2018-09-08 09:15 | NUR ---
ICU/RN: Dr Thornton at bedside for pulmo consult; updated on pt status. ABG's reviewed by MD with vent changes ordered. Noted and carried out. Plan for vent weaning tomorrow am.
[2018-09-08] MEDS ORDERED: IV NS 0.9% 500 ML IV ONE (09:30)
[2018-09-08] MEDS: ENOXAPARIN SODIUM 80 MG/0.8 ML DISP.SYRIN SQ SCH ×2 (09:35→21:15)
[2018-09-08] MEDS: NOREPINEPHRINE 8 MG in IV D5W 500 ML IV PRN ×2 (09:36→22:31)
--- NOTE | 2018-09-08 10:30 | NUR ---
ICU/RN:Cardiac consult; Bradycardia Dr Cisneros at bedside for cardiac consult; informed of episodes of bradycardia in 40's, currently on levophed for BP support, s/p 500cc NS bolus. No new orders.
[2018-09-08] MEDS: IV NS 0.9% 1,000 ML IV PRN ×3 (10:59→21:23)
--- NOTE | 2018-09-08 13:40 | NUR ---
RN NOTES CALLED DR SILVA REGARDING TROPONIN LEVEL, 20.023 FROM 1.720. PT ON ASPIRIN SUPP AND LOVENOX 80MF Q12. NO NEW ORDER FROM DR SILVA. WILL CLOSELY MONITOR
[2018-09-08] MEDS: ASPIRIN 300 MG/SUPP.RECT RC SCH (14:54)
[2018-09-08] MEDS ORDERED: K PHOS NEUTRAL 250 MG TABLET PO ONE (15:30)
--- NOTE | 2018-09-08 15:45 | NUR ---
ICU/RN: Bed bath, wound care rendered. Small hard BM noted. Turned and repositioned. Tolerated well.
[2018-09-08] MEDS: IPRATROPIUM NEB FS 0.5 MG/2.5 ML AMPUL.NEB NEB SCH ×2 (15:52→19:54)
[2018-09-08 18:49] LABS: APPEARANCE,URINE CLOUDY (CLEAR); BILIRUBIN,URINE NEGATIVE (NEGATIVE); BLOOD, URINE NEGATIVE Ery/uL (NEGATIVE); COLOR,URINE YELLOW (YELLOW); KETONES,URINE NEGATIVE (NEGATIVE); LEUKOCYTE ESTERASE ,URINE 3+ (NEGATIVE); NITRITE, URINE NEGATIVE (NEGATIVE); PROTEIN,URINE TRACE mg/dl (NEGATIVE); UGLUCOSE NEGATIVE (NEGATIVE); UROBILINOGEN,URINE 0.2 EU/dL (0.2)
[2018-09-08 19:00] LABS: BACTERIA,URINE Moderate /HPF (None Seen); RBC,URINE 0-2 /HPF (0-2); WBC,URINE 81-100 /HPF (0-3)
[2018-09-08 19:01] LABS: SQUAMOUS EPITHELIAL CELL,UR Few /HPF (None Seen)
--- NOTE | 2018-09-08 20:00 | NUR ---
Received patient intubated to vent.Settings well tolerated.Sedated on Diprivan gtt at 40 mcg. No distress noted.SB 43.On Levophed gtt at 12 mcg for BP support and will titrate accordingly. OGT clamped.Condom cath to gravity.IVF NS infusing @ 200 ml/hr x 3L 2nd bag infusing.All iv's infusing via RIJ TLC site intact.Will turn and reposition q 2 hrs.Continue monitoring.
--- NOTE | 2018-09-08 20:49 | NUR ---
RECEIVED PT INTUBATED 7.5 ETT SECURED AT 24CM AT THE LIP. PT TOLERATING VENT SETTINGS. SX'D FOR SML AMT OF THIN WHITE SECRETIONS. VENT ALARMS SET AND AUDIBLE. AMBU BAG AT BEDSIDE. VENT PLUGGED INTO RED OUTLET. WILL CONTINUE TO MONITOR. Addendum: 09/08/18 at 2050 by MARYJANE MORENO RT Amended: Links added.
[2018-09-08] MEDS: TAMSULOSIN 0.4 MG CAP.SR.24H PO SCH (22:02)
[2018-09-09] VITALS (67 sets, daily range): BP systolic 84–138; BP diastolic 37–86
--- NOTE | 2018-09-09 | NUR ---
Patient resting remains SB 44.No acute distress.Turned and repositioned.
[2018-09-09] MEDS: IPRATROPIUM NEB FS 0.5 MG/2.5 ML AMPUL.NEB NEB SCH ×4 (01:21→19:36)
[2018-09-09] MEDS: PROPOFOL 100 ML IV PRN ×2 (01:39→06:37)
[2018-09-09] MEDS: VANCOMYCIN 0.75 GM in IV D5W 250 ML IV SCH ×2 (04:03→16:23)
[2018-09-09 04:10] LABS: BASOPHILS % (AUTO) 0.5 % (0.0-2.0); EOSINOPHILS % (AUTO) 1.9 % (0.0-6.0); HEMATOCRIT 39 % (39-51); HEMOGLOBIN 12.7 g/dL (13.5-17.5); LYMPHOCYTES # (AUTO) 0.7 /CMM (0.8-4.8); LYMPHOCYTES % (AUTO) 7.7 % (20.0-44.0); MEAN CORPUSCULAR HGB CONC 33 g/dl (31.0-36.0); MEAN CORPUSCULAR VOLUME 90 fL (80-96); MONOCYTES # (AUTO) 0.9 /CMM (0.1-1.30); MONOCYTES % (AUTO) 9.2 % (2.0-12.0); NEUTROPHILS # (AUTO) 7.7 /CMM (1.8-8.9); NEUTROPHILS % (AUTO) 80.7 % (43.0-81.0); PLATELET COUNT (AUTO) 278 /CMM (150-450); RED BLOOD CELL COUNT(AUTO) 4.33 MIL/uL (4.5-6.0); WHITE BLOOD COUNT (AUTO) 9.6 K/uL (4.3-11.0)
[2018-09-09 04:23] LABS: ALANINE AMINOTRANSFERASE 29 U/L (12-78); ALBUMIN 2.1 g/dL (3.4-5.0); ALKALINE PHOSPHATASE 72 U/L (46-116); ASPARTATE AMINOTRANSFERASE 48 U/L (15-37); BILIRUBIN,TOTAL 0.6 mg/dL (0.2-1.0); CALCIUM, SERUM 7.3 mg/dL (8.5-10.1); CARBON DIOXIDE 30 mmol/L (21-32); CHLORIDE 106 mmol/L (98-107); CREATININE 0.9 mg/dL (0.6-1.3); GLUCOSE 123 mg/dL (74-106); MAGNESIUM 2.2 mg/dL (1.8-2.4); PHOSPHORUS 3.7 mg/dL (2.5-4.9); POTASSIUM 4.1 mmol/L (3.5-5.1); SODIUM SERUM 138 mmol/L (136-145); TOTAL PROTEIN, SERUM 5.9 g/dL (6.4-8.2); UREA NITROGEN, BLOOD 19 mg/dL (7-18)
[2018-09-09] MEDS: IV NS 0.9% 1,000 ML IV PRN ×2 (06:47→16:42)
[2018-09-09] MEDS: HYDROCORTISONE SOD SUCCINATE 100 MG/2 ML VIAL IV SCH ×4 (06:47→16:21)
--- NOTE | 2018-09-09 07:15 | NUR ---
Patient remains on same vent settings well tolerated.Tele SB 37-55.Levophed gtt infusing at 16 mcg. Diprivan at 40 mcg.Am care done.No acute distress noted.Turned and repositioned.Report given to day shift RN for MONTY.
[2018-09-09] MEDS ORDERED: NOREPINEPHRINE 16 MG in IV NS 0.9% 500 ML IV PRN (07:30)
[2018-09-09] MEDS ORDERED: NOREPINEPHRINE 16 MG in IV D5W 500 ML IV PRN (08:00)
--- NOTE | 2018-09-09 08:00 | NUR ---
ICU/RN: Pt off sedation, confused, able to follow simple commands. Condom cath draining to gravity. Restraint care rendered. Will cont to monitor pt.
--- NOTE | 2018-09-09 08:01 | NUR ---
WOUND CARE CONSULT WOUND CARE RECEIVED CONSULT FOR MARE AT 15, CHIN RASH, SACRUM AND BUTTOCK REDNESS. WOUND CARE WILL DEFER CONSULT AND TREATMENT PLANS TO PLASTIC SURGICAL TEAM WHO ARE CURRENTLY FOLLOWING THIS PATIENT. PATIENT WITH MARE AT 15, ALL PRESSURE ULCER PREVENTION MEASURES ARE NOTED TO BE IN PLACE. WILL SEE PRN.
[2018-09-09] MEDS: ASPIRIN 300 MG/SUPP.RECT RC SCH (08:09)
[2018-09-09] MEDS: FOLIC ACID 1 MG TABLET PO SCH (08:10)
[2018-09-09] MEDS: risperiDONE 0.25 MG TABLET PO SCH ×2 (08:10→16:21)
[2018-09-09] MEDS: ENOXAPARIN SODIUM 80 MG/0.8 ML DISP.SYRIN SQ SCH ×2 (08:15→21:09)
--- NOTE | 2018-09-09 08:26 | NUR ---
pt. is awake and follow commands. vent changes below made for weaning trial per dr. gomez: simv 4 vt 500 ps 12 io2 40% peep +5. Addendum: 09/09/18 at 0828 by ETHAN MORALEZ RT Amended: Links added.
[2018-09-09] MEDS ORDERED: DC PROPOFOL WHEN EXTUBATED XX PRN (09:00)
[2018-09-09] MEDS: MEMANTINE HCL 5 MG TABLET PO SCH ×2 (10:10→16:21)
[2018-09-09] MEDS: CEFEPIME 2 GM in IV D5W 100 ML IV SCH ×2 (10:10→20:30)
[2018-09-09 10:12] LABS: ABG OXYGEN SATURATION 98.5 % (92.0-98.5); ABG PCO2 41.6 mmHg (35.0-45.0); ABG PH 7.334 (7.350-7.450); ABG PO2 148.4 mmHg (75.0-100.0); COHb 0.5 % (0.5-1.5); MetHb 0.5 % (0.0-1.5); O2Hb 97.5 % (94.0-97.0); PEEP,BG 5 cm H2O; SITE, ABG Right Brachial; VT, ABG 500 mL
--- NOTE | 2018-09-09 10:30 | NUR ---
ICU/RN: Pt s/p extubation, tolerated well. Oriented to unit. Confused. Hygienic care rendered. Pt attempts to pull out lines. Restraints reapplied.
--- NOTE | 2018-09-09 10:30 | NUR ---
pt. is awake and follow commands extubated per dr. gomez, placed into 2 lpm o2 flow. v/s post extubation below: spo2 98 - 100% rr 15 - 18 hr 73 - 76 ambu bag @ bedside. Addendum: 09/09/18 at 1033 by ETHAN MORALEZ RT Amended: Links added.
[2018-09-09] MEDS: FLUDROCORTISONE 0.1 MG TABLET NG SCH ×3 (12:49→23:25)
--- NOTE | 2018-09-09 15:10 | NUR ---
ICU/RN: Stool sent for C-diff as ordered. 3 loose, mucoid stools noted. Flexiseal inserted, tolerated well.
--- NOTE | 2018-09-09 18:00 | NUR ---
ICU/RN: Pt assisted with dinner, aspiration precautions in place. Ate 100% of dinner
--- NOTE | 2018-09-09 19:10 | NUR ---
ICU/RN: Pt comfortable on NC, no distress, restless in bed. Restraint care rendered.
--- NOTE | 2018-09-09 19:19 | NUR ---
SKATE BOARDER. INITIAL ASSESSMENT. RECEIVED THE PT REST ON THE BED. AWAKE, ALERT. AGITATED. OXYGEN 3L VIA NASAL CANNULA. SAT 96%, NO ACUTE DISTRESS NOTED. DRY HOUSE WORKER SHOWING NSR. IV RT IJ TLC. IVF NS 100ML/H. HOB ELEVATED. MARTINA SOFF WRIST RESTRAINT CHECKED AND RELEASED. NO INJURY OR REDNESS NOTED, CONDOM CATH INTACT. WILL CONTINUE TO MONITOR VITALS.
[2018-09-09] MEDS: TAMSULOSIN 0.4 MG CAP.SR.24H PO SCH (23:25)
[2018-09-10] VITALS (33 sets, daily range): BP systolic 95–150; BP diastolic 42–109
[2018-09-10] MEDS: IPRATROPIUM NEB FS 0.5 MG/2.5 ML AMPUL.NEB NEB SCH ×4 (01:05→19:49)
--- NOTE | 2018-09-10 03:37 | NUR ---
BUSINESS SOLUTIONS DIRECTOR. AM CARE, ORAL CARE, BED BATH GIVEN. LINEN CHANGED. REMAINING SAME OXYGEN TOLERATED WELL. SAT 96%, NO ACUTE DISTRESS NOTED, KENNEL MANAGER DOG TRACK SHOWING NSR, IV RT IJ. IVF NS 100ML/H, HOB ELEVATED, MARTINA SOFT WRIST RESTRAINT CHECKED AND RELEASED. NO INJURY CT REDNESS NOTED, FC CONDOM CATH INTACT. FLEXA SEAL INTACT. HOB ELEVATED, TURN AND REPOSITION Q2H, WILL CONTINUE TO MONITOR VITALS.
[2018-09-10] MEDS: IV NS 0.9% 1,000 ML IV PRN (04:16)
[2018-09-10 04:47] LABS: ALANINE AMINOTRANSFERASE 24 U/L (12-78); ALBUMIN 2.1 g/dL (3.4-5.0); ALKALINE PHOSPHATASE 63 U/L (46-116); ASPARTATE AMINOTRANSFERASE 22 U/L (15-37); BILIRUBIN,TOTAL 0.5 mg/dL (0.2-1.0); CALCIUM, SERUM 7.6 mg/dL (8.5-10.1); CARBON DIOXIDE 27 mmol/L (21-32); CHLORIDE 111 mmol/L (98-107); GLUCOSE 85 mg/dL (74-106); MAGNESIUM 2.3 mg/dL (1.8-2.4); PHOSPHORUS 3.2 mg/dL (2.5-4.9); POTASSIUM 3.6 mmol/L (3.5-5.1); SODIUM SERUM 145 mmol/L (136-145); TOTAL PROTEIN, SERUM 5.8 g/dL (6.4-8.2); UREA NITROGEN, BLOOD 15 mg/dL (7-18)
[2018-09-10] MEDS: VANCOMYCIN 0.75 GM in IV D5W 250 ML IV SCH (05:09)
[2018-09-10] MEDS: FLUDROCORTISONE 0.1 MG TABLET NG SCH ×4 (05:09→23:24)
--- NOTE | 2018-09-10 07:15 | NUR ---
RECEIVED PATIENT A/OX1 TO SELF. CALM AND COOPERATIVE. RESTLESS. WILL FOLLOW SIMPLE COMMANDS. ON ISOLATION TO R/O C-DIFF. PATIENT IV SITE C/D/I/P. TELE NSR. ON LOW FLOW 02NC NO SOB, DIFFICULTY BREATHING. NO S/S DISTRESS NOTED. SAFETY, SKIN, ASPIRATION PRECAUTIONS IN PLACE AND WILL MONITOR.
[2018-09-10] MEDS: CEFEPIME 2 GM in IV D5W 100 ML IV SCH ×2 (08:46→21:09)
[2018-09-10] MEDS: HYDROCORTISONE SOD SUCCINATE 100 MG/2 ML VIAL IV SCH ×3 (08:46→17:11)
[2018-09-10] MEDS: FOLIC ACID 1 MG TABLET PO SCH (08:47)
[2018-09-10] MEDS: Z GUARD REMEDY 2 OZ OINT TP PRN ×2 (08:47→17:11)
[2018-09-10] MEDS: ATORVASTATIN 10 MG TABLET PO SCH (08:47)
[2018-09-10] MEDS: MEMANTINE HCL 5 MG TABLET PO SCH ×2 (08:47→17:10)
[2018-09-10] MEDS: ASPIRIN 81 MG TAB.CHEW PO SCH (08:47)
[2018-09-10] MEDS: risperiDONE 0.25 MG TABLET PO SCH ×2 (08:47→17:11)
[2018-09-10] MEDS: CARVEDILOL 3.125 MG TABLET PO SCH ×2 (08:48→21:06)
[2018-09-10] MEDS: ASPIRIN 300 MG/SUPP.RECT RC SCH (09:00)
--- NOTE | 2018-09-10 18:40 | NUR ---
PATIENT TRANSFERRED TO TELE BED 103 IN STABLE CONDITION. ALL DUE MEDS GIVEN AND ALL NEEDS MET. PATIENT STABLE ON LOW FLOW NC. DIAPERED. IV SITE C/D/I/P. TELE NSR. NO RESTRAINTS IN PLACE AND COOPERATIVE. SKIN, SAFETY, ASPIRATION PRECAUTIONS IN PLACE AND MONITORED THROUGHOUT DAY. NO ADVERSE EVENTS. NO SOB, DIFFICULTY BREATHING.
--- NOTE | 2018-09-10 18:45 | NUR ---
SKEIN TIER NOTES: Rec'd report from Jose QUINTANILLA. Routine assessment done. Pt kept well rested & comfortable. Will endorse to PM RN for MONTY.
--- NOTE | 2018-09-10 20:00 | NUR ---
Received patient A/O X1 otherwise confused and disoriented.Reoriented.Safety measures implemented. Bed locked,low position,side rails up and bed alarm on.Call light within easy reach.VS stable.Tele SR 70'S-80'S.Denies pain.Pulled out condom cath and flexi seal came out when he cough.kept clean and dry.RIJ TLC intact.Turned and repositioned.Continue monitoring.
[2018-09-10] MEDS ORDERED: IV NS 0.9% 250 ML IV ONE (21:00)
[2018-09-10] MEDS: TAMSULOSIN 0.4 MG CAP.SR.24H PO SCH (21:23)
[2018-09-11] VITALS: BP 121/69
--- NOTE | 2018-09-11 | NUR ---
Patient resting in no acute distress.VS stable.Turned ans repositioned.
[2018-09-11] MEDS: IPRATROPIUM NEB FS 0.5 MG/2.5 ML AMPUL.NEB NEB SCH ×4 (01:04→19:15)
[2018-09-11 04:00] VITALS: BP 164/48
[2018-09-11] MEDS: FLUDROCORTISONE 0.1 MG TABLET NG SCH ×3 (05:17→16:47)
[2018-09-11 06:57] LABS: BASOPHILS % (AUTO) 0.2 % (0.0-2.0); EOSINOPHILS % (AUTO) 0.2 % (0.0-6.0); HEMATOCRIT 36 % (39-51); HEMOGLOBIN 11.5 g/dL (13.5-17.5); LYMPHOCYTES % (AUTO) 10.3 % (20.0-44.0); MEAN CORPUSCULAR HGB CONC 32 g/dl (31.0-36.0); MEAN CORPUSCULAR VOLUME 90 fL (80-96); MONOCYTES # (AUTO) 0.7 /CMM (0.1-1.30); MONOCYTES % (AUTO) 7.3 % (2.0-12.0); NEUTROPHILS # (AUTO) 8.1 /CMM (1.8-8.9); PLATELET COUNT (AUTO) 274 /CMM (150-450); RED BLOOD CELL COUNT(AUTO) 3.98 MIL/uL (4.5-6.0); WHITE BLOOD COUNT (AUTO) 9.9 K/uL (4.3-11.0)
[2018-09-11 07:16] LABS: CARBON DIOXIDE 27 mmol/L (21-32); CHLORIDE 112 mmol/L (98-107); GLUCOSE 83 mg/dL (74-106); MAGNESIUM 2.5 mg/dL (1.8-2.4); PHOSPHORUS 3.5 mg/dL (2.5-4.9); SODIUM SERUM 146 mmol/L (136-145); UREA NITROGEN, BLOOD 16 mg/dL (7-18)
--- NOTE | 2018-09-11 07:17 | NUR ---
Patient resting no significant change noted during the night.AM care done.VS stable.Safety precaution maintained.Report given to day shift RN for MONTY.
[2018-09-11 08:00] VITALS: BP 114/62
[2018-09-11] MEDS: FOLIC ACID 1 MG TABLET PO SCH (08:04)
[2018-09-11] MEDS: MEMANTINE HCL 5 MG TABLET PO SCH ×2 (08:05→16:47)
[2018-09-11] MEDS: ASPIRIN 81 MG TAB.CHEW PO SCH (08:05)
[2018-09-11] MEDS: ATORVASTATIN 10 MG TABLET PO SCH (08:05)
[2018-09-11] MEDS: ASPIRIN 300 MG/SUPP.RECT RC SCH (08:05)
[2018-09-11] MEDS: CARVEDILOL 3.125 MG TABLET PO SCH (08:05)
[2018-09-11] MEDS: CEFEPIME 2 GM in IV D5W 100 ML IV SCH (08:06)
[2018-09-11] MEDS: HYDROCORTISONE SOD SUCCINATE 100 MG/2 ML VIAL IV SCH (08:39)
[2018-09-11] MEDS: risperiDONE 1 MG TABLET PO SCH ×2 (08:39→16:47)
--- NOTE | 2018-09-11 10:45 | NUR ---
RN NOTE 0715: Received patient awake, alert to self. Follows some commands, poor concentration. Noted with mumbling words and coughing at times. 98% on 2LPM of O2 via NC. RIJ TLC intact. 0830: Tolerated pureed diet. AM meds given. 1000: S/E by Dr. Cisneros, with order to DC tele and transfer to Med surg status. 1045: No any significant changes noted at this time. Kept clean, warm and dry. Needs attended.
[2018-09-11 16:00] VITALS: BP 125/84
--- NOTE | 2018-09-11 16:59 | NUR ---
RN NOTE 1615: S/E by Wily BATISTA, aware that patient was seen by psyche, awaiting psyche notes. Patient still disoriented and unable to give consents.
[2018-09-11] MEDS ORDERED: HYDROCORTISONE SOD SUCCINATE 100 MG/2 ML VIAL IV SCH (17:00)
[2018-09-11] MEDS ORDERED: CARV3.122 PO (17:30)
[2018-09-11] MEDS ORDERED: CEFE2PIG2 IV (17:30)
[2018-09-11] MEDS ORDERED: ATOR10TA PO (17:30)
[2018-09-11] MEDS ORDERED: ASPI-1169 PO (17:30)
[2018-09-11] MEDS ORDERED: PRED10TA PO (17:30)
[2018-09-11] MEDS ORDERED: PRED5TAB PO (17:30)
[2018-09-11] MEDS ORDERED: PRED20TA PO (17:30)
--- NOTE | 2018-09-11 18:43 | NUR ---
RN NOTE To be discharged back to facility, left message to Kellen Carpio, no call back.
--- NOTE | 2018-09-11 18:55 | NUR ---
Rn NOTE Report given to Qing in [facility].
--- NOTE | 2018-09-11 19:05 | NUR ---
Received patient ,awake,alert but confuse and restless in bed,follows simple commands on and off,not in nay distress,with o2 via NC @ 4 L/min.Triple Lumen catheter @ right IJ,dressing dry and intact. Awaiting transport,[facility].
[2018-09-11 20:00] VITALS: BP 139/72
[2018-09-11 20:18] VITALS: BP 125/84
--- NOTE | 2018-09-11 20:28 | NUR ---
Transport here to apple picking supervisor patient brief report given .Patient remains stable,awake,alert,not in any distress.
--- NOTE | 2018-09-11 20:35 | NUR ---
Patient discharged.Stable
== END 2018-09-11 21:30 | DRG 871 ==
LOC: ER 15:06 → MEDSG1 17:08 → ICU 19:23 → TELE1 09-10 18:42 → MEDSG1 09-11 09:28
PROVIDERS: ADMIT Internal Medicine; ATTEND Hospitalist
PROC: 5A1945Z Respiratory Ventilation, 24-96 Consecutive Hours (ICD-10-PCS; principal; 2018-09-07)
PROC: 0BH17EZ Insertion of Endotracheal Airway into Trachea, Via Natural or Artificial Opening (ICD-10-PCS; 2018-09-07)
PROC: 02HV33Z Insertion of Infusion Device into Superior Vena Cava, Percutaneous Approach (ICD-10-PCS; 2018-09-07)
PROC: B548ZZA Ultrasonography of Superior Vena Cava, Guidance (ICD-10-PCS; 2018-09-07)
DX: A41.9 Sepsis, unspecified organism (principal); J69.0 Pneumonitis due to inhalation of food and vomit; J96.02 Acute respiratory failure with hypercapnia; J96.01 Acute respiratory failure with hypoxia; N17.0 Acute kidney failure with tubular necrosis; G93.41 Metabolic encephalopathy; E43 Unspecified severe protein-calorie malnutrition; I21.4 Non-ST elevation (NSTEMI) myocardial infarction; R65.21 Severe sepsis with septic shock; N39.0 Urinary tract infection, site not specified; E27.40 Unspecified adrenocortical insufficiency; E86.9 Volume depletion, unspecified; E87.5 Hyperkalemia; F03.90 Unspecified dementia, unspecified severity, without behavioral disturbance, psychotic disturbance, mood disturbance, and anxiety; F20.9 Schizophrenia, unspecified; I25.10 Atherosclerotic heart disease of native coronary artery without angina pectoris; I25.2 Old myocardial infarction; J44.9 Chronic obstructive pulmonary disease, unspecified; I50.9 Heart failure, unspecified; I11.0 Hypertensive heart disease with heart failure; E11.9 Type 2 diabetes mellitus without complications; R21 Rash and other nonspecific skin eruption; L98.8 Other specified disorders of the skin and subcutaneous tissue; E88.09 Other disorders of plasma-protein metabolism, not elsewhere classified; Z68.23 Body mass index [BMI] 23.0-23.9, adult
CPT/HCPCS: 31720; 36415; 36600; 70450-TC; 71045-TC; 80048-TC; 80053-TC; 80061-TC; 80202-TC; 81000-TC; 82533; 82803-TC; 83605-TC; 83735-TC; 84100-TC; 84484-TC; 85025-TC; 85730-TC; 87040-TC; 87070-TC; 87081-TC; 87086-TC; 87400; 93307-TC; 94002-TC; 94003-TC; 94640-TC; 94760-TC; 94799-TC; 99082-TC; A4217; A4349; C1751; G0378; J0692; J1650; J1720; J2250; J2543; J3010; J3370; J3490; J7030; J7040; J7050; J7060; Q9967

== ENCOUNTER 2019-05-11 15:32 | Inpatient (IN) | payer MEDICARE, OTHER ==
[~2019-05-11] VITALS: Ht 165.1 cm; Wt 68.5 kg
[~2019-05-11 15:32] MED LIST changes: -ACET325C5 PO; +ACET325C7 PO; -AMOX-427 PO; +ASPI-1169 PO; +ATOR10TA PO; +CARV3.122 PO; +CEFE2PIG2 IV; -CLOT15CR35 TP; -DEXT15DR6 EACHEYE; -LORA-258 PO; +POLY15DR40 EACHEYE; +PRED10TA PO; +PRED20TA PO; +PRED5TAB PO; +RISP0.253 PO; -RISP1TAB7 PO
--- NOTE | 2019-05-11 15:40 | NUR ---
BIBPA, AAOX4. AMBULATORY. SENT BY SNF FOR AGITATION, AGGRESSION, HITTING STAFF. PT PLACED ON MONITOR AND PULSE OX. PT DENIES ANY PAIN, -SI,-HI. RR EVEN AND UNLABORED. MD AT BEDSIDE
[2019-05-11] MEDS ORDERED: ASPI-1169 PO (15:45)
[2019-05-11] MEDS ORDERED: MULT-24 PO (15:45)
[2019-05-11] MEDS ORDERED: ATOR10TA PO (15:45)
--- NOTE | 2019-05-11 15:50 | NUR ---
PT IN BED. VSS.
--- NOTE | 2019-05-11 15:59 | NUR ---
URINE COLLECTED AND SENT TO LAB
--- NOTE | 2019-05-11 15:59 | NUR ---
HEAD TEACHER AT BEDSIDE FOR LAB COLELCTION
[2019-05-11 16:09] LABS: BASOPHILS # (AUTO) 0.1 /CMM (0.0-0.2); BASOPHILS % (AUTO) 0.7 % (0.0-2.0); EOSINOPHILS % (AUTO) 3.6 % (0.0-6.0); HEMATOCRIT 45 % (39-51); HEMOGLOBIN 14.6 g/dL (13.5-17.5); LYMPHOCYTES # (AUTO) 1.5 /CMM (0.8-4.8); MEAN CORPUSCULAR HGB CONC 32 g/dl (31.0-36.0); MEAN CORPUSCULAR VOLUME 91 fL (80-96); MONOCYTES # (AUTO) 0.7 /CMM (0.1-1.30); MONOCYTES % (AUTO) 8.3 % (2.0-12.0); NEUTROPHILS # (AUTO) 6.1 /CMM (1.8-8.9); NEUTROPHILS % (AUTO) 70.4 % (43.0-81.0); PLATELET COUNT (AUTO) 213 /CMM (150-450); RED BLOOD CELL COUNT(AUTO) 4.99 MIL/uL (4.5-6.0); WHITE BLOOD COUNT (AUTO) 8.6 K/uL (4.3-11.0)
[2019-05-11 16:10] LABS: BILIRUBIN,URINE Negative (NEGATIVE); BLOOD, URINE Small Ery/uL (NEGATIVE); COLOR,URINE Yellow (YELLOW); KETONES,URINE Negative (NEGATIVE); LEUKOCYTE ESTERASE ,URINE Small (NEGATIVE); NITRITE, URINE Negative (NEGATIVE); PROTEIN,URINE Negative (NEGATIVE); UGLUCOSE Negative (NEGATIVE); UROBILINOGEN,URINE 0.2 EU/dL (0.2)
[2019-05-11 16:15] LABS: APPEARANCE,URINE SLIGHTLY HAZY (CLEAR)
[2019-05-11 16:27] LABS: CALCIUM, SERUM 8.8 mg/dL (8.5-10.1); CARBON DIOXIDE 33 mmol/L (21-32); CHLORIDE 104 mmol/L (98-107); GLUCOSE 83 mg/dL (74-106); POTASSIUM 4.1 mmol/L (3.5-5.1); SODIUM SERUM 141 mmol/L (136-145); UREA NITROGEN, BLOOD 24 mg/dL (7-18)
[2019-05-11 16:32] LABS: BACTERIA,URINE Few /HPF (None Seen); SQUAMOUS EPITHELIAL CELL,UR Few /HPF (None Seen)
[2019-05-11 16:36] LABS: ALANINE AMINOTRANSFERASE 22 U/L (12-78); ALBUMIN 3.2 g/dL (3.4-5.0); ALCOHOL, BLOOD < 3 mg/dL (0-0); ALKALINE PHOSPHATASE 82 U/L (46-116); ASPARTATE AMINOTRANSFERASE 17 U/L (15-37); BILIRUBIN,DIRECT 0.1 mg/dL (0.0-0.2); BILIRUBIN,TOTAL 0.7 mg/dL (0.2-1.0)
[2019-05-11 16:46] LABS: ACETAMINOPHEN 0 ug/ml (10-30); SALICYLATE 0.9 mg/dL (2.8-20.0)
--- NOTE | 2019-05-11 16:55 | NUR ---
PT IN BED COMFORTABLY. NO ACUTE DISTRESS. VSS.
--- NOTE | 2019-05-11 17:39 | NUR ---
REPROT GIVEN TO MARCIANO QUINTANILLA
[2019-05-11] MEDS ORDERED: MAGNESIUM HYDROXIDE 30 ML UDC PO PRN (22:00)
[2019-05-11] MEDS ORDERED: MAG HYDROX/AL HYDROX/SIMETH 30 ML UDC PO PRN (22:00)
[2019-05-11] MEDS ORDERED: ACETAMINOPHEN 325 MG TABLET PO PRN (22:00)
[2019-05-11] MEDS ORDERED: BLOOD SUGAR DIAGNOSTIC 1 EACH STRIP IN ONE (22:00)
[2019-05-12 00:11] VITALS: BP 130/67
--- NOTE | 2019-05-12 00:20 | NUR ---
GPS RN NOTES: ADMITTED 73 Y/O MALE. PT ADMITTED FROM [facility] ER TO GPS ON A 5150. PER JENNIFER PT BECAME AGITATED, AGGRESSIVE, AND HITTING STAFF AT THE FACILITY HE WAS AT [facility]. UPON FACE TO FACE ASSESSMENT PT IS ALERT/ ORIENTED X1-2, NEEDY, TALKS TO SELF, OCCASIONALLY LAUGHS AT SELF, CONFUSED, MUMBLING, DISORGANIZED, AND STARES BLANKLY. PT STATED, "I DONT KNOW WHY IM HERE." PT DENIES SI/HI AT THIS TIME. MN REFUSED TO SIGN CONSENT PAPERS DUE TO CONDITION. ENVIRONMENTAL SAFETY CHECK DONE Q 15 MIN. ENCOURAGE TO VERBALIZE FEELINGS AND CONCERNS TO STAFF. ORIENTED TO THE UNIT. HAND UMBRELLA TIPPER MD AWARE AND NOTIFIED OF ADMISSION. BELONGING AND CONTRABAND WERE DONE AND CHECKED. NURSING ASSESSMENT DONE. PICTURE TAKEN OF PT AND PUT IN CHART. PT RIGHTS DISCUSS BY RESEARCH SPECIALIST. PROVIDED PT WITH HANDBOOK AND MED GUIDE. VITALS SIGNS TAKEN WNL. NO S/S OF RESP DISTRESS. BREATHING EVEN AND UNLABORED. INITIAL BS CHECKED DONE. CONTINUE TO MONITOR.
[2019-05-12] MEDS ORDERED: Medication Not On Formulary EA (Acetaminophen (Tylenol) 650 MG) PO PRN (00:30)
[2019-05-12] MEDS ORDERED: MAG HYDROX/AL HYDROX/SIMETH 30 ML UDC PO PRN (00:30)
--- NOTE | 2019-05-12 06:32 | NUR ---
[facility] RN NOTES: PT REFUSED LABS. EXPLAIN RISKS AND BENEFITS X3 STILL REFUSED. PT STATED, "OUT!" LABORATORY WILL COME BACK AND RETRY AGAIN. ENDORSED TO THE AM SHIFT TO F/U. CONTINUE TO MONITOR.
[2019-05-12 08:00] VITALS: BP 124/65
[2019-05-12] MEDS: MEMANTINE HCL 5 MG TABLET PO SCH ×2 (08:36→16:36)
[2019-05-12] MEDS: ASPIRIN 81 MG TAB.CHEW PO SCH (08:36)
[2019-05-12] MEDS: FOLIC ACID 1 MG TABLET PO SCH (08:36)
[2019-05-12] MEDS: MULTIVITAMINS,THERAGRAN 1 UDTAB TABLET PO SCH (08:36)
[2019-05-12] MEDS ORDERED: risperiDONE 0.25 MG TABLET PO SCH (09:00)
[2019-05-12] MEDS: POLYVINYL ALCOHOL 15 ML BOTTLE OP SCH ×3 (09:08→16:35)
[2019-05-12] MEDS: LORAZEPAM 0.5 MG TABLET PO PRN (09:31)
--- NOTE | 2019-05-12 09:39 | NUR ---
RN NOTE- PT YELLING IN ROOM, ANXIOUS. ATIVAN 0.5 MG GIVEN. MONITORING BEHAVIOR
--- NOTE | 2019-05-12 09:51 | NUR ---
WOUND CARE CONSULT: RECEIVED CONSULT FOR ABDOMEN REDNESS. CURRENT MARE SCORE IS 23. PT IS EXTREMELY AGITATED. UNABLE TO DO SKIN ASSESSMENT AT THIS TIME. WILL SEE PRN.
--- NOTE | 2019-05-12 11:30 | NUR ---
Public Guardian Contact: SW called the pts public guardian, Kellen ([phone]), and her voicemail was full so the SW was unable to leave a message.
--- NOTE | 2019-05-12 11:31 | NUR ---
Public Guardian Contact: ANNY called the Public Guardian front desk clerk ([phone]) and spoke to Radha who transferred the phone to the unit duty worker who was Ms. Vyas. ANNY asked for basic information on the pt and she stated that the pt was born in [place] and had a family member by the name of Franco Rm and was unable to provide any more information.
--- NOTE | 2019-05-12 11:32 | NUR ---
Facility Contact: ANNY called [facility] ([phone]) and spoke to lAbert from [employer] to discuss the pts information and he stated that they do not have any information other than he was at [facility] one year ago and that he has a public guardian by the name of Kellen.
--- NOTE | 2019-05-12 11:33 | NUR ---
Facility Contact: ANNY contacted CJ ([phone]) from [facility] and confirmed that the pt can return to the facility upon discharge from the hospital.
--- NOTE | 2019-05-12 11:37 | NUR ---
Public Guardian Contact: ANNY called the Public Guardian front office supervisor ([phone]) and spoke to Radha who transferred the phone to the unit duty worker who was Ms. Vyas. ANNY asked her for the pts detain and treat to be faxed to the nurses station fax number at [phone].
--- NOTE | 2019-05-12 12:18 | NUR ---
Initial Discharge Plan: Pt currently resides at [facility] located at [address] [place] [id number]; ([phone]). Per CJ from the facility, the pt can return. ANNY will work with the pt, the public guardian and the MD regarding appropriate discharge planning. SW will form a safe and proper discharge.
[2019-05-12] MEDS: risperiDONE 1 MG TABLET PO SCH ×2 (12:22→16:35)
[2019-05-12] MEDS: DIVALPROEX SODIUM 125 MG CAP.SPRINK PO SCH ×2 (12:22→16:36)
[2019-05-12 14:18] LABS: CHOLESTEROL 100 mg/dL (<200); HDL CHOLESTEROL 32 mg/dL (40-60); LDL 61 mg/dL (0-99); TRIGLYCERIDES 69 mg/dL (30-150)
[2019-05-12 16:00] VITALS: BP 143/75
[2019-05-12 21:09] VITALS: BP 109/57
[2019-05-12] MEDS: ATORVASTATIN 10 MG TABLET PO SCH (21:29)
[2019-05-12] MEDS: TAMSULOSIN 0.4 MG CAP.SR.24H PO SCH (21:29)
[2019-05-12] MEDS: TEMAZEPAM 7.5 MG CAPSULE PO PRN (23:29)
[2019-05-13 08:00] VITALS: BP 151/77
[2019-05-13] MEDS: risperiDONE 1 MG TABLET PO SCH ×3 (08:59→16:34)
[2019-05-13] MEDS: FOLIC ACID 1 MG TABLET PO SCH (09:00)
[2019-05-13] MEDS: ASPIRIN 81 MG TAB.CHEW PO SCH (09:00)
[2019-05-13] MEDS: MEMANTINE HCL 5 MG TABLET PO SCH ×2 (09:00→16:34)
[2019-05-13] MEDS: DIVALPROEX SODIUM 125 MG CAP.SPRINK PO SCH ×3 (09:00→16:33)
[2019-05-13] MEDS: MULTIVITAMINS,THERAGRAN 1 UDTAB TABLET PO SCH (09:03)
[2019-05-13] MEDS: POLYVINYL ALCOHOL 15 ML BOTTLE OP SCH ×3 (09:03→16:34)
[2019-05-13 16:00] VITALS: BP 143/57
[2019-05-13 20:45] VITALS: BP 114/70
[2019-05-13] MEDS: TEMAZEPAM 7.5 MG CAPSULE PO PRN (21:54)
[2019-05-13] MEDS: ATORVASTATIN 10 MG TABLET PO SCH (21:54)
[2019-05-13] MEDS: TAMSULOSIN 0.4 MG CAP.SR.24H PO SCH (21:54)
[2019-05-14 08:00] VITALS: BP 108/64
[2019-05-14] MEDS: ASPIRIN 81 MG TAB.CHEW PO SCH (08:22)
[2019-05-14] MEDS: risperiDONE 1 MG TABLET PO SCH ×3 (08:22→17:15)
[2019-05-14] MEDS: FOLIC ACID 1 MG TABLET PO SCH (08:22)
[2019-05-14] MEDS: MULTIVITAMINS,THERAGRAN 1 UDTAB TABLET PO SCH (08:22)
[2019-05-14] MEDS: DIVALPROEX SODIUM 125 MG CAP.SPRINK PO SCH ×3 (08:22→17:15)
[2019-05-14] MEDS: MEMANTINE HCL 5 MG TABLET PO SCH ×2 (08:23→17:16)
[2019-05-14] MEDS: POLYVINYL ALCOHOL 15 ML BOTTLE OP SCH ×3 (09:00→17:00)
[2019-05-14 16:00] VITALS: BP 119/63
[2019-05-14 20:00] VITALS: BP 120/68
[2019-05-14 20:40] VITALS: BP 120/68
[2019-05-14] MEDS: TAMSULOSIN 0.4 MG CAP.SR.24H PO SCH (21:38)
[2019-05-14] MEDS: ATORVASTATIN 10 MG TABLET PO SCH (21:38)
[2019-05-15 08:00] VITALS: BP 100/60
[2019-05-15] MEDS: POLYVINYL ALCOHOL 15 ML BOTTLE OP SCH ×3 (08:25→16:50)
[2019-05-15] MEDS: DIVALPROEX SODIUM 125 MG CAP.SPRINK PO SCH ×3 (08:26→16:50)
[2019-05-15] MEDS: MULTIVITAMINS,THERAGRAN 1 UDTAB TABLET PO SCH (08:26)
[2019-05-15] MEDS: ASPIRIN 81 MG TAB.CHEW PO SCH (08:26)
[2019-05-15] MEDS: risperiDONE 1 MG TABLET PO SCH ×3 (08:26→16:50)
[2019-05-15] MEDS: FOLIC ACID 1 MG TABLET PO SCH (08:26)
[2019-05-15] MEDS: MEMANTINE HCL 5 MG TABLET PO SCH ×2 (08:26→16:50)
--- NOTE | 2019-05-15 10:30 | NUR ---
gps director of flight operations: notes pt showered at this time.
[2019-05-15 16:00] VITALS: BP 135/64
[2019-05-15 20:01] VITALS: BP 113/43
[2019-05-15] MEDS: ATORVASTATIN 10 MG TABLET PO SCH (21:13)
[2019-05-15] MEDS: TAMSULOSIN 0.4 MG CAP.SR.24H PO SCH (21:13)
[2019-05-16 08:00] VITALS: BP 136/71
[2019-05-16] MEDS: FOLIC ACID 1 MG TABLET PO SCH (08:10)
[2019-05-16] MEDS: MEMANTINE HCL 5 MG TABLET PO SCH ×2 (08:10→16:48)
[2019-05-16] MEDS: risperiDONE 1 MG TABLET PO SCH ×3 (08:10→16:47)
[2019-05-16] MEDS: ASPIRIN 81 MG TAB.CHEW PO SCH (08:10)
[2019-05-16] MEDS: DIVALPROEX SODIUM 125 MG CAP.SPRINK PO SCH ×3 (08:10→16:48)
[2019-05-16] MEDS: MULTIVITAMINS,THERAGRAN 1 UDTAB TABLET PO SCH (08:10)
[2019-05-16] MEDS: POLYVINYL ALCOHOL 15 ML BOTTLE OP SCH ×3 (08:14→16:48)
[2019-05-16 16:00] VITALS: BP 132/79
[2019-05-16] MEDS: ATORVASTATIN 10 MG TABLET PO SCH (20:40)
[2019-05-16] MEDS: TAMSULOSIN 0.4 MG CAP.SR.24H PO SCH (20:40)
[2019-05-16 20:51] VITALS: BP 123/64
--- NOTE | 2019-05-16 20:54 | NUR ---
GPS/RN TEMAZEPAM WAS GIVEN EARLY WHILE PATIENT IS WILLING TO TAKE MEDICATIONS. WILL MONITOR.
[2019-05-17] MEDS: LORAZEPAM 0.5 MG TABLET PO PRN (02:11)
--- NOTE | 2019-05-17 02:13 | NUR ---
GPS/RN PATIENT IS AWAKE, ANXIOUS AND MAKING NOISE IN THE ROOM, ATIVAN WAS GIVEN ORDERED. WILL CONTINUE TO MONITOR.
[2019-05-17 08:00] VITALS: BP 106/55
[2019-05-17] MEDS: POLYVINYL ALCOHOL 15 ML BOTTLE OP SCH ×3 (08:32→16:27)
[2019-05-17] MEDS: FOLIC ACID 1 MG TABLET PO SCH (08:33)
[2019-05-17] MEDS: DIVALPROEX SODIUM 125 MG CAP.SPRINK PO SCH ×3 (08:33→16:27)
[2019-05-17] MEDS: risperiDONE 1 MG TABLET PO SCH ×4 (08:33→21:11)
[2019-05-17] MEDS: MULTIVITAMINS,THERAGRAN 1 UDTAB TABLET PO SCH (08:33)
[2019-05-17] MEDS: MEMANTINE HCL 5 MG TABLET PO SCH ×2 (08:33→16:27)
[2019-05-17] MEDS: ASPIRIN 81 MG TAB.CHEW PO SCH (08:33)
[2019-05-17 16:00] VITALS: BP 106/57
[2019-05-17 20:39] VITALS: BP 116/60
[2019-05-17] MEDS: TAMSULOSIN 0.4 MG CAP.SR.24H PO SCH (21:14)
[2019-05-17] MEDS: ATORVASTATIN 10 MG TABLET PO SCH (21:15)
--- NOTE | 2019-05-18 05:02 | NUR ---
RN NOTES: PT. REFUSED WEEKLY SKIN ASSESSMENT AND PICTURES, ENCOURAGED STILL REFUSED AND PT. BEHAVIOR VERY UNCOOPERATIVE, WILL CONTUINITY WITH CARE.
[2019-05-18 08:00] VITALS: BP 100/56
[2019-05-18] MEDS: MULTIVITAMINS,THERAGRAN 1 UDTAB TABLET PO SCH (08:36)
[2019-05-18] MEDS: risperiDONE 1 MG TABLET PO SCH ×2 (08:36→21:12)
[2019-05-18] MEDS: FOLIC ACID 1 MG TABLET PO SCH (08:36)
[2019-05-18] MEDS: DIVALPROEX SODIUM 125 MG CAP.SPRINK PO SCH ×3 (08:36→17:11)
[2019-05-18] MEDS: ASPIRIN 81 MG TAB.CHEW PO SCH (08:36)
[2019-05-18] MEDS: MEMANTINE HCL 5 MG TABLET PO SCH ×2 (08:36→17:12)
[2019-05-18] MEDS: POLYVINYL ALCOHOL 15 ML BOTTLE OP SCH ×3 (09:00→17:00)
[2019-05-18 16:00] VITALS: BP 105/55
[2019-05-18 20:13] VITALS: BP 132/80
[2019-05-18] MEDS: ATORVASTATIN 10 MG TABLET PO SCH (21:12)
[2019-05-18] MEDS: TAMSULOSIN 0.4 MG CAP.SR.24H PO SCH (21:12)
[2019-05-18] MEDS: TEMAZEPAM 7.5 MG CAPSULE PO PRN (23:40)
[2019-05-19 08:00] VITALS: BP 128/87
[2019-05-19] MEDS: DIVALPROEX SODIUM 125 MG CAP.SPRINK PO SCH ×2 (08:54→14:26)
[2019-05-19] MEDS: POLYVINYL ALCOHOL 15 ML BOTTLE OP SCH ×2 (08:54→14:26)
[2019-05-19] MEDS: MULTIVITAMINS,THERAGRAN 1 UDTAB TABLET PO SCH (08:55)
[2019-05-19] MEDS: ASPIRIN 81 MG TAB.CHEW PO SCH (08:55)
[2019-05-19] MEDS: FOLIC ACID 1 MG TABLET PO SCH (08:55)
[2019-05-19] MEDS: risperiDONE 1 MG TABLET PO SCH (08:55)
[2019-05-19] MEDS: MEMANTINE HCL 5 MG TABLET PO SCH (08:55)
--- NOTE | 2019-05-19 09:57 | NUR ---
SNF Contact: ANNY contacted CJ ([phone]) from [facility] and informed him that the pt is going to be returning to their facility today.
--- NOTE | 2019-05-19 09:59 | NUR ---
Public Guardian Contact: SW called the pts public guardian, Kellen ([phone]), and left a voicemail stating that the pt was going to be discharged back to [facility] today.
--- NOTE | 2019-05-19 11:42 | NUR ---
Discharge Note: Pt was discharged to [facility] ([facility]) located at [address] [place] [address]; ([phone]). Pt was transported via [facility] at 3PM. SW informed pts public guardian, Kellen ([phone]), via voicemail. Upon discharge, the pt appeared to be in a manic mood and presented with a distressed affect. Pt denied both suicidal and homicidal ideation as well as auditory and visual hallucinations. Pt will continue to be under the care of psychiatrist, Dr. Crowley, located at [address] [facility] [facility] [address], [address] [place] [address]; and director of agronomy, Dr. Renteria, located at [address] [place] [address]; .
--- NOTE | 2019-05-19 13:40 | NUR ---
REFUSED DISCHARGE PHOTOS.
--- NOTE | 2019-05-19 15:30 | NUR ---
confused,med compliant. in to see pt. dc order given.chirag caldwell in cleared pt. medically.report called to rn at facility.ambulance here and interstate bus driver given report.pt. denies suicidal ideation,homicidal ideations,command auditory hallucinations.taken via ambulance to [facility].
== END 2019-05-19 15:30 | DRG 885 ==
LOC: ER 15:39 → GPS 17:40
PROVIDERS: ADMIT Psychiatry & Neurology Psychosomatic Medicine; ATTEND Hospitalist
DX: F25.0 Schizoaffective disorder, bipolar type (principal); E44.1 Mild protein-calorie malnutrition; F29 Unspecified psychosis not due to a substance or known physiological condition; F41.9 Anxiety disorder, unspecified; E88.09 Other disorders of plasma-protein metabolism, not elsewhere classified; I10 Essential (primary) hypertension; I25.2 Old myocardial infarction; J44.9 Chronic obstructive pulmonary disease, unspecified; N40.0 Benign prostatic hyperplasia without lower urinary tract symptoms; F03.90 Unspecified dementia, unspecified severity, without behavioral disturbance, psychotic disturbance, mood disturbance, and anxiety; E11.9 Type 2 diabetes mellitus without complications; Z68.25 Body mass index [BMI] 25.0-25.9, adult
CPT/HCPCS: 36415; 71045-TC; 80048-TC; 80061-TC; 80076-TC; 80305; 81000-TC; 82565-TC; 82962-TC; 84484-TC; 85025-TC; 87081-TC; 87086-TC; G0480

== ENCOUNTER 2019-06-21 10:58 | Inpatient (IN) | payer MEDICARE, MEDICAID ==
[~2019-06-21] VITALS: Ht 182.9 cm; Wt 73.5 kg
[~2019-06-21 10:58] MED LIST changes: -CARV3.122 PO; -CEFE2PIG2 IV; +MULT-24 PO; -MULT1TAB73 PO; -PRED10TA PO; -PRED20TA PO; -PRED5TAB PO
[2019-06-21] MEDS ORDERED: Magnesium 1GM/D5W 100ML PREMIX 200 ML IV ONE ×2 (11:13→11:16)
[2019-06-21] MEDS ORDERED: IPRATROPIUM NEB FS 0.5 MG/2.5 ML AMPUL.NEB ONE (11:15)
[2019-06-21] MEDS ORDERED: ALBUTEROL FS 2.5 MG/3 ML VIAL.NEB ONE ×3 (11:15→12:39)
[2019-06-21] MEDS ORDERED: methylPREDNISolone SOD SUCC 125 MG/2ML VIAL ONE (11:16)
[2019-06-21] MEDS ORDERED: PRED20TA PO (11:21)
[2019-06-21] MEDS ORDERED: NA P133E RC (11:21)
[2019-06-21] MEDS ORDERED: ALBU2.5V38 IH (11:21)
[2019-06-21] MEDS ORDERED: BLOO-668 IN (11:21)
[2019-06-21] MEDS ORDERED: AZIT250T13 PO (11:21)
[2019-06-21] MEDS ORDERED: BISA10SU11 RC (11:21)
[2019-06-21] MEDS ORDERED: MAGN400O6 PO (11:21)
[2019-06-21] MEDS ORDERED: methylPREDNISolone SOD SUCC 125 MG/2ML VIAL IV ONE (11:30)
[2019-06-21] MEDS ORDERED: IPRATROPIUM NEB FS 0.5 MG/2.5 ML AMPUL.NEB NEB ONE (11:30)
[2019-06-21] MEDS ORDERED: IV NS 0.9% 500 ML BAG IV ONE (11:30)
[2019-06-21] MEDS ORDERED: ALBUTEROL FS 2.5 MG/3 ML VIAL.NEB NEB ONE ×2 (11:30→13:00)
[2019-06-21 12:01] LABS: BASOPHILS # (AUTO) 0.1 /CMM (0.0-0.2); BASOPHILS % (AUTO) 0.4 % (0.0-2.0); EOSINOPHILS % (AUTO) 0.1 % (0.0-6.0); HEMATOCRIT 43 % (39-51); HEMOGLOBIN 13.1 g/dL (13.5-17.5); LYMPHOCYTES # (AUTO) 1.4 /CMM (0.8-4.8); LYMPHOCYTES % (AUTO) 9.1 % (20.0-44.0); MEAN CORPUSCULAR HGB CONC 31 g/dl (31.0-36.0); MEAN CORPUSCULAR VOLUME 94 fL (80-96); MONOCYTES % (AUTO) 6.7 % (2.0-12.0); NEUTROPHILS # (AUTO) 12.9 /CMM (1.8-8.9); NEUTROPHILS % (AUTO) 83.7 % (43.0-81.0); PLATELET COUNT (AUTO) 157 /CMM (150-450); RED BLOOD CELL COUNT(AUTO) 4.54 MIL/uL (4.5-6.0); WHITE BLOOD COUNT (AUTO) 15.4 K/uL (4.3-11.0)
[2019-06-21 12:10] LABS: CALCIUM, SERUM 8.3 mg/dL (8.5-10.1); CREATININE 1.2 mg/dL (0.6-1.3); POTASSIUM 4.3 mmol/L (3.5-5.1)
[2019-06-21 12:16] LABS: BILIRUBIN,DIRECT 0.1 mg/dL (0.0-0.2); BILIRUBIN,TOTAL 0.4 mg/dL (0.2-1.0); TOTAL PROTEIN, SERUM 6.1 g/dL (6.4-8.2)
[2019-06-21] MEDS ORDERED: LEVOFLOXACIN 750 MG /D5W 150ML 150 ML IV ONE ×2 (12:30→14:55)
[2019-06-21] MEDS ORDERED: PIPERACILLIN /TAZOBACTAM 3.375 G in IV D5W 50 ML IV ONE (12:30)
[2019-06-21] MEDS ORDERED: ONDANSETRON HCL/PF 4 MG/2 ML VIAL IVP PRN (13:30)
[2019-06-21] MEDS ORDERED: ACETAMINOPHEN 325 MG TABLET PO PRN (13:30)
[2019-06-21] MEDS ORDERED: MAGNESIUM HYDROXIDE 30 ML UDC PO PRN (13:30)
[2019-06-21] MEDS ORDERED: BISACODYL SUPP (10 MG) 10 MG/SUPP.RECT SUPP.RECT RC PRN (13:30)
[2019-06-21] MEDS ORDERED: DEXTROSE 50%-WATER 50 ML DISP.SYRIN IV PRN (13:30)
[2019-06-21] MEDS ORDERED: Z GUARD REMEDY 2 OZ OINT TP PRN (13:30)
[2019-06-21] MEDS ORDERED: MAG HYDROX/AL HYDROX/SIMETH 30 ML UDC PO PRN (13:30)
[2019-06-21 13:42] LABS: ABG BASE EXCESS 0.5 mmol/L; ABG OXYGEN SATURATION 96.5 % (92.0-98.5); ABG PH 7.162 (7.350-7.450); ABG PO2 94.7 mmHg (75.0-100.0); AaDO2 159.4 mmHg; COHb 0.7 % (0.5-1.5); MetHb 0.5 % (0.0-1.5); O2Hb 95.3 % (94.0-97.0); SITE, ABG Left Radial; VENT MODE, BG ST 15/5 R 14
[2019-06-21] MEDS: IPRATROPIUM NEB FS 0.5 MG/2.5 ML AMPUL.NEB NEB SCH ×2 (15:30→19:40)
[2019-06-21] MEDS: ALBUTEROL FS 2.5 MG/0.5 ML VIAL.NEB NEB SCH ×2 (15:30→19:40)
[2019-06-21] MEDS ORDERED: FEE PK DOSING 1 MIN EA MC ONE (15:48)
[2019-06-21] MEDS: VANCOMYCIN 1 GM in IV D5W 250 ML IV SCH (17:00)
[2019-06-21] MEDS ORDERED: methylPREDNISolone SOD SUCC 40 MG/ML VIAL IV SCH (17:00)
[2019-06-21] MEDS: MEMANTINE HCL 5 MG TABLET PO SCH (17:00)
[2019-06-21] MEDS: BLOOD SUGAR DIAGNOSTIC 1 EACH STRIP IN SCH ×2 (17:30→22:30)
[2019-06-21 17:36] LABS: ABG BASE EXCESS 2.7 mmol/L; ABG OXYGEN SATURATION 89.4 % (92.0-98.5); ABG PCO2 68.1 mmHg (35.0-45.0); ABG PH 7.281 (7.350-7.450); ABG PO2 52.7 mmHg (75.0-100.0); AaDO2 66.6 mmHg; COHb 0.6 % (0.5-1.5); MetHb 0.6 % (0.0-1.5); O2Hb 88.3 % (94.0-97.0); SITE, ABG Right Radial; VENT MODE, BG NASAL CANNULA
[2019-06-21 18:00] VITALS: BP 146/100
[2019-06-21] MEDS: risperiDONE 1 MG TABLET PO SCH (18:13)
[2019-06-21] MEDS: ENOXAPARIN SODIUM 40 MG/0.4 ML DISP.SYRIN SQ SCH (18:13)
[2019-06-21] MEDS ORDERED: DILTIAZEM HCL 50 MG IV IV ONE (18:30)
[2019-06-21 19:00] VITALS: BP 165/85
[2019-06-21] MEDS ORDERED: LORAZEPAM INJ 2 MG/ML VIAL IV ONE (19:00)
[2019-06-21 20:00] VITALS: BP 118/50
[2019-06-21] MEDS: PIPERACILLIN /TAZOBACTAM 3.375 G in IV D5W 50 ML IV SCH (20:37)
[2019-06-21 21:00] VITALS: BP 129/71
[2019-06-21] MEDS: POLYVINYL ALCOHOL 15 ML BOTTLE EACHEYE SCH (21:23)
[2019-06-21 21:36] LABS: ABG BASE EXCESS 2.1 mmol/L; ABG OXYGEN SATURATION 97.8 % (92.0-98.5); ABG PCO2 89.9 mmHg (35.0-45.0); ABG PH 7.184 (7.350-7.450); ABG PO2 126.3 mmHg (75.0-100.0); AaDO2 129.1 mmHg; MetHb 0.6 % (0.0-1.5); O2Hb 97.2 % (94.0-97.0); SITE, ABG Left Radial
[2019-06-21 22:00] VITALS: BP 126/74
[2019-06-21] MEDS: ATORVASTATIN 10 MG TABLET PO SCH (22:12)
[2019-06-21] MEDS: FUROSEMIDE 20 MG/2 ML VIAL IV SCH (22:12)
[2019-06-21] MEDS: TAMSULOSIN 0.4 MG CAP.SR.24H PO SCH (22:12)
[2019-06-21 23:00] VITALS: BP 122/75
[2019-06-21] MEDS: INSULIN REGULAR, HUMAN 100 UNIT/ML 3 ML VIAL SQ PRN (23:09)
[2019-06-22] VITALS (26 sets, daily range): BP systolic 97–158; BP diastolic 41–84
[2019-06-22 01:34] LABS: ABG BASE EXCESS 8.1 mmol/L; ABG OXYGEN SATURATION 94.4 % (92.0-98.5); ABG PCO2 64.5 mmHg (35.0-45.0); ABG PH 7.362 (7.350-7.450); ABG PO2 67.5 mmHg (75.0-100.0); AaDO2 70.6 mmHg; COHb 0.5 % (0.5-1.5); MetHb 0.3 % (0.0-1.5); O2Hb 93.6 % (94.0-97.0); SITE, ABG Left Radial; VENT MODE, BG ST 25/5 RR20 30%
[2019-06-22] MEDS: PIPERACILLIN /TAZOBACTAM 3.375 G in IV D5W 50 ML IV SCH ×4 (02:07→19:59)
[2019-06-22] MEDS: POLYVINYL ALCOHOL 15 ML BOTTLE EACHEYE SCH ×3 (05:21→21:26)
[2019-06-22] MEDS: VANCOMYCIN 1 GM in IV D5W 250 ML IV SCH (05:23)
[2019-06-22] MEDS: methylPREDNISolone SOD SUCC 40 MG/ML VIAL IV SCH ×3 (05:23→21:25)
[2019-06-22 05:33] LABS: BASOPHILS % (AUTO) 0.4 % (0.0-2.0); HEMATOCRIT 41 % (39-51); HEMOGLOBIN 13.1 g/dL (13.5-17.5); LYMPHOCYTES # (AUTO) 0.4 /CMM (0.8-4.8); LYMPHOCYTES % (AUTO) 4.1 % (20.0-44.0); MEAN CORPUSCULAR HGB CONC 32 g/dl (31.0-36.0); MEAN CORPUSCULAR VOLUME 93 fL (80-96); MONOCYTES # (AUTO) 0.3 /CMM (0.1-1.30); MONOCYTES % (AUTO) 3.7 % (2.0-12.0); NEUTROPHILS # (AUTO) 8.7 /CMM (1.8-8.9); NEUTROPHILS % (AUTO) 91.8 % (43.0-81.0); PLATELET COUNT (AUTO) 149 /CMM (150-450); RED BLOOD CELL COUNT(AUTO) 4.46 MIL/uL (4.5-6.0); WHITE BLOOD COUNT (AUTO) 9.5 K/uL (4.3-11.0)
[2019-06-22 05:50] LABS: CALCIUM, SERUM 8.3 mg/dL (8.5-10.1); CREATININE 1.1 mg/dL (0.6-1.3); MAGNESIUM 2.5 mg/dL (1.8-2.4); PHOSPHORUS 3.3 mg/dL (2.5-4.9); POTASSIUM 4.5 mmol/L (3.5-5.1)
[2019-06-22 06:03] LABS: THYROID STIMULATING HORMONE 3.057 uIU/mL (0.358-3.74)
[2019-06-22] MEDS: IPRATROPIUM NEB FS 0.5 MG/2.5 ML AMPUL.NEB NEB SCH ×4 (07:35→19:39)
[2019-06-22] MEDS: ALBUTEROL FS 2.5 MG/0.5 ML VIAL.NEB NEB SCH ×4 (07:35→19:39)
[2019-06-22] MEDS: BLOOD SUGAR DIAGNOSTIC 1 EACH STRIP IN SCH ×4 (08:19→22:47)
[2019-06-22] MEDS: ASPIRIN 81 MG TAB.CHEW PO SCH (08:55)
[2019-06-22] MEDS: MEMANTINE HCL 5 MG TABLET PO SCH ×2 (08:55→16:43)
[2019-06-22] MEDS: FOLIC ACID 1 MG TABLET PO SCH (08:55)
[2019-06-22] MEDS: risperiDONE 1 MG TABLET PO SCH ×2 (08:55→16:43)
[2019-06-22] MEDS: FUROSEMIDE 20 MG/2 ML VIAL IV SCH (08:56)
[2019-06-22] MEDS: MULTIVITAMINS,THERAGRAN 1 UDTAB TABLET PO SCH (08:56)
[2019-06-22] MEDS: CLOTRIMAZOLE 1% 15 GM TUBE TP SCH ×2 (12:01→16:46)
[2019-06-22] MEDS: ENOXAPARIN SODIUM 40 MG/0.4 ML DISP.SYRIN SQ SCH (21:25)
[2019-06-22] MEDS: TAMSULOSIN 0.4 MG CAP.SR.24H PO SCH (22:03)
[2019-06-22] MEDS: ATORVASTATIN 10 MG TABLET PO SCH (22:03)
[2019-06-23] VITALS (19 sets, daily range): BP systolic 98–149; BP diastolic 44–82
[2019-06-23] MEDS: PIPERACILLIN /TAZOBACTAM 3.375 G in IV D5W 50 ML IV SCH ×4 (02:09→20:18)
[2019-06-23 04:36] LABS: CALCIUM, SERUM 8.1 mg/dL (8.5-10.1); CREATININE 1.2 mg/dL (0.6-1.3)
[2019-06-23] MEDS: POLYVINYL ALCOHOL 15 ML BOTTLE EACHEYE SCH ×3 (05:29→21:51)
[2019-06-23] MEDS: methylPREDNISolone SOD SUCC 40 MG/ML VIAL IV SCH ×4 (05:29→21:44)
[2019-06-23] MEDS: IPRATROPIUM NEB FS 0.5 MG/2.5 ML AMPUL.NEB NEB SCH ×4 (07:38→20:15)
[2019-06-23] MEDS: ALBUTEROL FS 2.5 MG/0.5 ML VIAL.NEB NEB SCH ×4 (07:39→20:15)
[2019-06-23] MEDS: BLOOD SUGAR DIAGNOSTIC 1 EACH STRIP IN SCH ×4 (08:29→22:24)
[2019-06-23] MEDS: FOLIC ACID 1 MG TABLET PO SCH (09:48)
[2019-06-23] MEDS: MEMANTINE HCL 5 MG TABLET PO SCH ×2 (09:48→16:23)
[2019-06-23] MEDS: risperiDONE 1 MG TABLET PO SCH ×2 (09:48→16:23)
[2019-06-23] MEDS: CLOTRIMAZOLE 1% 15 GM TUBE TP SCH ×2 (09:48→16:23)
[2019-06-23] MEDS: ASPIRIN 81 MG TAB.CHEW PO SCH (09:48)
[2019-06-23] MEDS: MULTIVITAMINS,THERAGRAN 1 UDTAB TABLET PO SCH (09:48)
[2019-06-23] MEDS: FUROSEMIDE 20 MG/2 ML VIAL IV SCH (15:39)
[2019-06-23 18:00] LABS: ABG BASE EXCESS 17.3 mmol/L; ABG OXYGEN SATURATION 96.6 % (92.0-98.5); ABG PCO2 67.5 mmHg (35.0-45.0); ABG PH 7.441 (7.350-7.450); ABG PO2 86.9 mmHg (75.0-100.0); AaDO2 91.5 mmHg; COHb 0.4 % (0.5-1.5); MetHb 0.5 % (0.0-1.5); O2Hb 95.7 % (94.0-97.0); SITE, ABG Right Radial; VENT MODE, BG NASAL CANNULA
[2019-06-23] MEDS: ENOXAPARIN SODIUM 40 MG/0.4 ML DISP.SYRIN SQ SCH (21:44)
[2019-06-23] MEDS: ATORVASTATIN 10 MG TABLET PO SCH (21:44)
[2019-06-23] MEDS: TAMSULOSIN 0.4 MG CAP.SR.24H PO SCH (22:22)
[2019-06-23] MEDS: INSULIN REGULAR, HUMAN 100 UNIT/ML 3 ML VIAL SQ PRN (22:33)
[2019-06-24] VITALS: BP 96/51
[2019-06-24] MEDS: PIPERACILLIN /TAZOBACTAM 3.375 G in IV D5W 50 ML IV SCH ×4 (02:15→20:52)
[2019-06-24 04:00] VITALS: BP 111/48
[2019-06-24] MEDS: methylPREDNISolone SOD SUCC 40 MG/ML VIAL IV SCH ×3 (04:43→21:15)
[2019-06-24] MEDS: POLYVINYL ALCOHOL 15 ML BOTTLE EACHEYE SCH ×3 (04:43→21:58)
[2019-06-24 06:41] LABS: BASOPHILS % (AUTO) 0.1 % (0.0-2.0); HEMATOCRIT 37 % (39-51); LYMPHOCYTES # (AUTO) 0.4 /CMM (0.8-4.8); LYMPHOCYTES % (AUTO) 3.8 % (20.0-44.0); MEAN CORPUSCULAR HGB CONC 33 g/dl (31.0-36.0); MEAN CORPUSCULAR VOLUME 90 fL (80-96); MONOCYTES # (AUTO) 0.5 /CMM (0.1-1.30); MONOCYTES % (AUTO) 4.4 % (2.0-12.0); NEUTROPHILS # (AUTO) 10.4 /CMM (1.8-8.9); NEUTROPHILS % (AUTO) 91.7 % (43.0-81.0); PLATELET COUNT (AUTO) 158 /CMM (150-450); RED BLOOD CELL COUNT(AUTO) 4.12 MIL/uL (4.5-6.0); WHITE BLOOD COUNT (AUTO) 11.3 K/uL (4.3-11.0)
[2019-06-24] MEDS: ALBUTEROL FS 2.5 MG/0.5 ML VIAL.NEB NEB SCH ×4 (07:21→19:43)
[2019-06-24] MEDS: IPRATROPIUM NEB FS 0.5 MG/2.5 ML AMPUL.NEB NEB SCH ×4 (07:21→19:43)
[2019-06-24 07:28] LABS: CALCIUM, SERUM 7.9 mg/dL (8.5-10.1); MAGNESIUM 1.9 mg/dL (1.8-2.4); PHOSPHORUS 3.8 mg/dL (2.5-4.9); POTASSIUM 3.8 mmol/L (3.5-5.1)
[2019-06-24 08:00] VITALS: BP 121/58
[2019-06-24] MEDS: BLOOD SUGAR DIAGNOSTIC 1 EACH STRIP IN SCH ×4 (08:14→21:35)
[2019-06-24] MEDS: ASPIRIN 81 MG TAB.CHEW PO SCH (08:22)
[2019-06-24] MEDS: risperiDONE 1 MG TABLET PO SCH ×2 (08:22→16:40)
[2019-06-24] MEDS: FOLIC ACID 1 MG TABLET PO SCH (08:22)
[2019-06-24] MEDS: FUROSEMIDE 20 MG/2 ML VIAL IV SCH (08:22)
[2019-06-24] MEDS: MEMANTINE HCL 5 MG TABLET PO SCH ×2 (08:22→16:40)
[2019-06-24] MEDS: MULTIVITAMINS,THERAGRAN 1 UDTAB TABLET PO SCH (08:22)
[2019-06-24] MEDS: CLOTRIMAZOLE 1% 15 GM TUBE TP SCH ×2 (08:24→16:41)
[2019-06-24] MEDS: INSULIN REGULAR, HUMAN 100 UNIT/ML 3 ML VIAL SQ PRN ×2 (12:11→21:56)
[2019-06-24 20:00] VITALS: BP 143/69
[2019-06-24] MEDS: ATORVASTATIN 10 MG TABLET PO SCH (21:15)
[2019-06-24] MEDS: TAMSULOSIN 0.4 MG CAP.SR.24H PO SCH (21:15)
[2019-06-24] MEDS: ENOXAPARIN SODIUM 40 MG/0.4 ML DISP.SYRIN SQ SCH (21:16)
[2019-06-25] MEDS: PIPERACILLIN /TAZOBACTAM 3.375 G in IV D5W 50 ML IV SCH ×4 (02:04→20:42)
[2019-06-25] MEDS: methylPREDNISolone SOD SUCC 40 MG/ML VIAL IV SCH ×3 (04:51→21:50)
[2019-06-25] MEDS: POLYVINYL ALCOHOL 15 ML BOTTLE EACHEYE SCH ×3 (04:58→21:49)
[2019-06-25] MEDS: ALBUTEROL FS 2.5 MG/0.5 ML VIAL.NEB NEB SCH ×4 (07:50→20:11)
[2019-06-25] MEDS: IPRATROPIUM NEB FS 0.5 MG/2.5 ML AMPUL.NEB NEB SCH ×4 (07:50→20:11)
[2019-06-25] MEDS: BLOOD SUGAR DIAGNOSTIC 1 EACH STRIP IN SCH ×4 (07:55→21:55)
[2019-06-25 08:00] VITALS: BP 129/68
[2019-06-25 08:09] LABS: CALCIUM, SERUM 8.2 mg/dL (8.5-10.1); CREATININE 0.9 mg/dL (0.6-1.3); POTASSIUM 3.7 mmol/L (3.5-5.1)
[2019-06-25] MEDS: ASPIRIN 81 MG TAB.CHEW PO SCH (09:40)
[2019-06-25] MEDS: risperiDONE 1 MG TABLET PO SCH ×2 (09:40→18:08)
[2019-06-25] MEDS: FOLIC ACID 1 MG TABLET PO SCH (09:40)
[2019-06-25] MEDS: MEMANTINE HCL 5 MG TABLET PO SCH ×2 (09:40→18:08)
[2019-06-25] MEDS: MULTIVITAMINS,THERAGRAN 1 UDTAB TABLET PO SCH (09:40)
[2019-06-25] MEDS: CLOTRIMAZOLE 1% 15 GM TUBE TP SCH ×2 (09:45→18:11)
[2019-06-25 10:00] VITALS: BP 129/68
[2019-06-25] MEDS ORDERED: AZIT250T13 PO (11:51)
[2019-06-25] MEDS ORDERED: PRED50TA PO (11:51)
[2019-06-25 20:00] VITALS: BP 133/67
[2019-06-25] MEDS: ATORVASTATIN 10 MG TABLET PO SCH (21:50)
[2019-06-25] MEDS: TAMSULOSIN 0.4 MG CAP.SR.24H PO SCH (21:50)
[2019-06-25] MEDS: ENOXAPARIN SODIUM 40 MG/0.4 ML DISP.SYRIN SQ SCH (21:51)
[2019-06-26] MEDS: PIPERACILLIN /TAZOBACTAM 3.375 G in IV D5W 50 ML IV SCH ×3 (01:52→13:15)
[2019-06-26 04:00] VITALS: BP 115/72
[2019-06-26] MEDS: methylPREDNISolone SOD SUCC 40 MG/ML VIAL IV SCH ×2 (05:05→13:12)
[2019-06-26] MEDS: POLYVINYL ALCOHOL 15 ML BOTTLE EACHEYE SCH ×2 (05:06→13:12)
[2019-06-26 07:13] LABS: BASOPHILS # (AUTO) 0.1 /CMM (0.0-0.2); BASOPHILS % (AUTO) 0.5 % (0.0-2.0); EOSINOPHILS % (AUTO) 0.1 % (0.0-6.0); HEMATOCRIT 38 % (39-51); HEMOGLOBIN 12.1 g/dL (13.5-17.5); LYMPHOCYTES # (AUTO) 0.3 /CMM (0.8-4.8); MEAN CORPUSCULAR HGB CONC 32 g/dl (31.0-36.0); MEAN CORPUSCULAR VOLUME 90 fL (80-96); MONOCYTES # (AUTO) 0.4 /CMM (0.1-1.30); MONOCYTES % (AUTO) 4.2 % (2.0-12.0); NEUTROPHILS # (AUTO) 9.6 /CMM (1.8-8.9); NEUTROPHILS % (AUTO) 92.2 % (43.0-81.0); PLATELET COUNT (AUTO) 154 /CMM (150-450); RED BLOOD CELL COUNT(AUTO) 4.21 MIL/uL (4.5-6.0); WHITE BLOOD COUNT (AUTO) 10.4 K/uL (4.3-11.0)
[2019-06-26] MEDS: BLOOD SUGAR DIAGNOSTIC 1 EACH STRIP IN SCH ×2 (07:29→11:57)
[2019-06-26 08:00] VITALS: BP 110/75
[2019-06-26 08:03] LABS: CARBON DIOXIDE 37 mmol/L (21-32); CHLORIDE 100 mmol/L (98-107); CREATININE 0.9 mg/dL (0.6-1.3); GLUCOSE 132 mg/dL (74-106); POTASSIUM 4.1 mmol/L (3.5-5.1); SODIUM SERUM 140 mmol/L (136-145); UREA NITROGEN, BLOOD 19 mg/dL (7-18)
[2019-06-26] MEDS: ALBUTEROL FS 2.5 MG/0.5 ML VIAL.NEB NEB SCH ×3 (08:08→15:37)
[2019-06-26] MEDS: IPRATROPIUM NEB FS 0.5 MG/2.5 ML AMPUL.NEB NEB SCH ×3 (08:08→15:37)
[2019-06-26] MEDS: risperiDONE 1 MG TABLET PO SCH (08:30)
[2019-06-26] MEDS: MULTIVITAMINS,THERAGRAN 1 UDTAB TABLET PO SCH (08:30)
[2019-06-26] MEDS: ASPIRIN 81 MG TAB.CHEW PO SCH (08:31)
[2019-06-26] MEDS: MEMANTINE HCL 5 MG TABLET PO SCH (08:31)
[2019-06-26] MEDS: CLOTRIMAZOLE 1% 15 GM TUBE TP SCH (08:31)
[2019-06-26] MEDS: FOLIC ACID 1 MG TABLET PO SCH (08:31)
[2019-06-26 12:00] VITALS: BP 110/75
[2019-06-26] MEDS: INSULIN REGULAR, HUMAN 100 UNIT/ML 3 ML VIAL SQ PRN (12:02)
[2019-06-26 16:00] VITALS: BP 116/71
== END 2019-06-26 17:05 | DRG 871 ==
LOC: ER 10:59 → ICU 14:55 → TELE1 06-23 17:08 → MEDSG1 06-24 11:47
PROVIDERS: ADMIT Nurse Practitioner Acute Care; ATTEND Internal Medicine
PROC: 5A09457 Assistance with Respiratory Ventilation, 24-96 Consecutive Hours, Continuous Positive Airway Pressure (ICD-10-PCS; principal; 2019-06-21)
PROC: 05H533Z Insertion of Infusion Device into Right Subclavian Vein, Percutaneous Approach (ICD-10-PCS; 2019-06-26)
PROC: B546ZZA Ultrasonography of Right Subclavian Vein, Guidance (ICD-10-PCS; 2019-06-26)
DX: A41.9 Sepsis, unspecified organism (principal); I50.31 Acute diastolic (congestive) heart failure; J18.9 Pneumonia, unspecified organism; J96.02 Acute respiratory failure with hypercapnia; I21.A1 Myocardial infarction type 2; E43 Unspecified severe protein-calorie malnutrition; G92 Toxic encephalopathy; N17.0 Acute kidney failure with tubular necrosis; J96.21 Acute and chronic respiratory failure with hypoxia; J96.22 Acute and chronic respiratory failure with hypercapnia; J44.1 Chronic obstructive pulmonary disease with (acute) exacerbation; J90 Pleural effusion, not elsewhere classified; E44.0 Moderate protein-calorie malnutrition; E87.5 Hyperkalemia; E11.9 Type 2 diabetes mellitus without complications; F03.90 Unspecified dementia, unspecified severity, without behavioral disturbance, psychotic disturbance, mood disturbance, and anxiety; I10 Essential (primary) hypertension; Z87.891 Personal history of nicotine dependence; D72.829 Elevated white blood cell count, unspecified; F20.9 Schizophrenia, unspecified; M81.0 Age-related osteoporosis without current pathological fracture; G47.30 Sleep apnea, unspecified; E88.09 Other disorders of plasma-protein metabolism, not elsewhere classified; Z68.22 Body mass index [BMI] 22.0-22.9, adult; I25.2 Old myocardial infarction
CPT/HCPCS: 36410; 36415; 36600; 71045-TC; 80048-TC; 80061-TC; 80076-TC; 82803-TC; 82962-TC; 83605-TC; 83735-TC; 83880; 84100-TC; 84443-TC; 84484-TC; 85025-TC; 85730-TC; 87040-TC; 87081-TC; 92526; 92611-TC; 93307-TC; 94760-TC; 94762-TC; 94799-TC; A4217; A4624; A6403; G0378; J1650; J1815; J1940; J1956; J2060; J2543; J2920; J2930; J3370; J3475; J3490; J7030; J7040; J7060

== ENCOUNTER 2023-01-02 12:47 | Inpatient (IN) | payer MEDICARE, OTHER ==
[~2023-01-02] VITALS: Ht 182.9 cm; Wt 67.1 kg
[~2023-01-02 12:47] MED LIST changes: +ALBU2.5V38 IH; +AZIT250T13 PO; +BISA10SU11 RC; +BLOO-668 IN; +MAGN400O6 PO; +NA P133E RC; +PRED50TA PO
[2023-01-02] MEDS ORDERED: LORA-259 PO (12:58)
[2023-01-02] MEDS ORDERED: CHOL100043 PO (12:58)
[2023-01-02] MEDS ORDERED: LEVO25TA7 PO (12:58)
[2023-01-02] MEDS ORDERED: GUAI237L83 PO (12:58)
[2023-01-02] MEDS ORDERED: MULT-447 PO (12:58)
[2023-01-02 14:31] LABS: BASOPHILS % (AUTO) 0.3 % (0.0-2.0); EOSINOPHILS # (AUTO) 0.1 K/uL (0.0-0.7); EOSINOPHILS % (AUTO) 0.7 % (0.0-6.0); HEMATOCRIT 44 % (39-51); HEMOGLOBIN 14.2 g/dL (13.5-17.5); LYMPHOCYTES # (AUTO) 1.4 K/uL (0.8-4.8); LYMPHOCYTES % (AUTO) 13.4 % (20.0-44.0); MEAN CORPUSCULAR HEMOGLOBIN 29 PG (26.0-33.0); MEAN CORPUSCULAR HGB CONC 33 g/dl (31.0-36.0); MEAN CORPUSCULAR VOLUME 88 fL (80-96); MONOCYTES # (AUTO) 0.8 K/uL (0.1-1.30); MONOCYTES % (AUTO) 7.6 % (2.0-12.0); NEUTROPHILS # (AUTO) 8.1 K/uL (1.8-8.9); PLATELET COUNT (AUTO) 212 K/uL (150-450); RED BLOOD CELL COUNT(AUTO) 4.97 MIL/uL (4.5-6.0); RED CELL DISTRIBUTION WIDTH 16.2 % (11.5-15.0); WHITE BLOOD COUNT (AUTO) 10.5 K/uL (4.3-11.0)
[2023-01-02 14:51] LABS: CALCIUM, SERUM 9.1 mg/dL (8.5-10.1); CARBON DIOXIDE 28 mmol/L (21-32); CHLORIDE 106 mmol/L (98-107); CREATININE 0.9 mg/dL (0.6-1.3); GLUCOSE 87 mg/dL (74-106); POTASSIUM 4.2 mmol/L (3.5-5.1); SODIUM SERUM 142 mmol/L (136-145); UREA NITROGEN, BLOOD 25 mg/dL (7-18)
[2023-01-02 14:58] LABS: ALANINE AMINOTRANSFERASE 32 U/L (12-78); ALBUMIN 3.4 g/dL (3.4-5.0); ALCOHOL, BLOOD < 3 mg/dL (0-10); ALKALINE PHOSPHATASE 78 U/L (46-116); ASPARTATE AMINOTRANSFERASE 15 U/L (15-37); BILIRUBIN,DIRECT 0.1 mg/dL (0.0-0.2); BILIRUBIN,TOTAL 0.5 mg/dL (0.2-1.0); SALICYLATE < 2.3 mg/dL (2.8-20.0); TOTAL PROTEIN, SERUM 6.9 g/dL (6.4-8.2)
[2023-01-02 14:59] LABS: ACETAMINOPHEN 0 ug/ml (10-30)
[2023-01-02] MEDS ORDERED: BLOOD SUGAR DIAGNOSTIC 1 EACH STRIP IN PRN (17:00)
[2023-01-02] MEDS ORDERED: MAG HYDROX/AL HYDROX/SIMETH 30 ML UDC PO PRN (17:00)
[2023-01-02] MEDS ORDERED: NA PHOS,M-B/NA PHOS,DI-BA 1 EA ENEMA RC PRN (17:00)
[2023-01-02] MEDS ORDERED: Z GUARD REMEDY 4 OZ OINT TP PRN (17:00)
[2023-01-02] MEDS ORDERED: BISACODYL SUPP (10 MG) 10 MG/SUPP.RECT SUPP.RECT RC PRN (17:00)
[2023-01-02] MEDS ORDERED: LORAZEPAM 0.5 MG TABLET PO PRN (17:00)
[2023-01-02] MEDS ORDERED: ONDANSETRON HCL/PF 4 MG/2 ML VIAL IVP PRN (17:00)
[2023-01-02] MEDS ORDERED: MAGNESIUM HYDROXIDE 30 ML UDC PO PRN ×2 (17:00)
[2023-01-02] MEDS ORDERED: ACETAMINOPHEN 325 MG TABLET PO PRN (17:00)
[2023-01-02 17:33] VITALS: BP 123/83; TEMP 98.1
[2023-01-02] MEDS: MEMANTINE HCL 5 MG TABLET PO SCH (18:00)
[2023-01-02] MEDS: risperiDONE 1 MG TABLET PO SCH (18:01)
[2023-01-02] MEDS: IV NS 0.9% 1,000 ML IV PRN (18:12)
[2023-01-02 20:00] VITALS: BP 122/69; TEMP 98.2; O2SAT 99
[2023-01-02] MEDS: TAMSULOSIN 0.4 MG CAP.SR.24H PO SCH (22:07)
[2023-01-03 04:00] VITALS: BP 135/81; TEMP 98; O2SAT 99
[2023-01-03 05:38] LABS: BASOPHILS % (AUTO) 0.5 % (0.0-2.0); EOSINOPHILS # (AUTO) 0.1 K/uL (0.0-0.7); EOSINOPHILS % (AUTO) 0.8 % (0.0-6.0); HEMATOCRIT 43 % (39-51); HEMOGLOBIN 13.8 g/dL (13.5-17.5); LYMPHOCYTES # (AUTO) 1.7 K/uL (0.8-4.8); LYMPHOCYTES % (AUTO) 18.6 % (20.0-44.0); MEAN CORPUSCULAR HEMOGLOBIN 29 PG (26.0-33.0); MEAN CORPUSCULAR HGB CONC 32 g/dl (31.0-36.0); MEAN CORPUSCULAR VOLUME 89 fL (80-96); MONOCYTES # (AUTO) 0.6 K/uL (0.1-1.30); MONOCYTES % (AUTO) 6.5 % (2.0-12.0); NEUTROPHILS # (AUTO) 6.7 K/uL (1.8-8.9); NEUTROPHILS % (AUTO) 73.6 % (43.0-81.0); PLATELET COUNT (AUTO) 208 K/uL (150-450); RED BLOOD CELL COUNT(AUTO) 4.83 MIL/uL (4.5-6.0); RED CELL DISTRIBUTION WIDTH 16.2 % (11.5-15.0); WHITE BLOOD COUNT (AUTO) 9.1 K/uL (4.3-11.0)
[2023-01-03 05:52] LABS: CALCIUM, SERUM 8.8 mg/dL (8.5-10.1); CARBON DIOXIDE 28 mmol/L (21-32); CHLORIDE 108 mmol/L (98-107); CREATININE 0.8 mg/dL (0.6-1.3); GLUCOSE 89 mg/dL (74-106); MAGNESIUM 1.9 mg/dL (1.8-2.4); PHOSPHORUS 3.7 mg/dL (2.5-4.9); POTASSIUM 4.3 mmol/L (3.5-5.1); SODIUM SERUM 141 mmol/L (136-145); UREA NITROGEN, BLOOD 21 mg/dL (7-18)
[2023-01-03] MEDS: LEVOTHYROXINE SODIUM 25 MCG TABLET PO SCH (07:43)
[2023-01-03] MEDS: FOLIC ACID 1 MG TABLET PO SCH (09:14)
[2023-01-03] MEDS: ASPIRIN 81 MG TAB.CHEW PO SCH (09:14)
[2023-01-03] MEDS: risperiDONE 1 MG TABLET PO SCH ×2 (09:14→16:42)
[2023-01-03] MEDS: MEMANTINE HCL 5 MG TABLET PO SCH ×2 (09:14→16:42)
[2023-01-03] MEDS: IV NS 0.9% 1,000 ML IV PRN (10:16)
[2023-01-03 12:00] VITALS: BP 140/80; TEMP 98; O2SAT 100
[2023-01-03] MEDS: ENSURE ENLIVE 237 ML LIQUID (VANILLA) PO SCH ×2 (13:45→16:43)
[2023-01-03 20:00] VITALS: BP 94/59; TEMP 97.6; O2SAT 96
[2023-01-03] MEDS: TAMSULOSIN 0.4 MG CAP.SR.24H PO SCH (21:21)
[2023-01-04] MEDS: IV NS 0.9% 1,000 ML IV PRN (03:57)
[2023-01-04 04:00] VITALS: BP 94/59; TEMP 97.6; O2SAT 96
[2023-01-04 06:47] LABS: BASOPHILS % (AUTO) 0.4 % (0.0-2.0); EOSINOPHILS # (AUTO) 0.2 K/uL (0.0-0.7); EOSINOPHILS % (AUTO) 1.7 % (0.0-6.0); HEMATOCRIT 42 % (39-51); HEMOGLOBIN 13.6 g/dL (13.5-17.5); LYMPHOCYTES # (AUTO) 1.6 K/uL (0.8-4.8); LYMPHOCYTES % (AUTO) 16.9 % (20.0-44.0); MEAN CORPUSCULAR HEMOGLOBIN 28 PG (26.0-33.0); MEAN CORPUSCULAR HGB CONC 32 g/dl (31.0-36.0); MEAN CORPUSCULAR VOLUME 88 fL (80-96); MONOCYTES # (AUTO) 0.7 K/uL (0.1-1.30); MONOCYTES % (AUTO) 7.5 % (2.0-12.0); NEUTROPHILS # (AUTO) 6.9 K/uL (1.8-8.9); NEUTROPHILS % (AUTO) 73.5 % (43.0-81.0); PLATELET COUNT (AUTO) 216 K/uL (150-450); RED BLOOD CELL COUNT(AUTO) 4.79 MIL/uL (4.5-6.0); WHITE BLOOD COUNT (AUTO) 9.4 K/uL (4.3-11.0)
[2023-01-04 07:40] LABS: CALCIUM, SERUM 9.1 mg/dL (8.5-10.1); CREATININE 0.8 mg/dL (0.6-1.3); PHOSPHORUS 3.6 mg/dL (2.5-4.9)
[2023-01-04] MEDS: LEVOTHYROXINE SODIUM 25 MCG TABLET PO SCH (07:49)
[2023-01-04] MEDS: risperiDONE 1 MG TABLET PO SCH ×2 (08:26→16:51)
[2023-01-04] MEDS: ASPIRIN 81 MG TAB.CHEW PO SCH (08:26)
[2023-01-04] MEDS: FOLIC ACID 1 MG TABLET PO SCH (08:26)
[2023-01-04] MEDS: MEMANTINE HCL 5 MG TABLET PO SCH ×2 (08:26→16:23)
[2023-01-04] MEDS: ENSURE ENLIVE 237 ML LIQUID (VANILLA) PO SCH ×3 (08:28→18:27)
[2023-01-04 12:00] VITALS: BP 106/66; TEMP 98.5; O2SAT 94
[2023-01-04 15:55] VITALS: BP 120/76; TEMP 98.7; O2SAT 93
[2023-01-04 20:00] VITALS: BP 120/76; TEMP 98.2; O2SAT 93
[2023-01-04] MEDS: TAMSULOSIN 0.4 MG CAP.SR.24H PO SCH (22:19)
[2023-01-05 04:00] VITALS: BP 135/69; TEMP 98.1
[2023-01-05] MEDS: LEVOTHYROXINE SODIUM 25 MCG TABLET PO SCH (07:45)
[2023-01-05] MEDS: FOLIC ACID 1 MG TABLET PO SCH (09:14)
[2023-01-05] MEDS: risperiDONE 1 MG TABLET PO SCH (09:14)
[2023-01-05] MEDS: ASPIRIN 81 MG TAB.CHEW PO SCH (09:14)
[2023-01-05] MEDS: MEMANTINE HCL 5 MG TABLET PO SCH (09:14)
[2023-01-05] MEDS: ENSURE ENLIVE 237 ML LIQUID (VANILLA) PO SCH ×2 (09:15→13:00)
[2023-01-05] MEDS ORDERED: AMIODARONE 450 MG in IV D5W 241 ML IV PRN (14:00)
[2023-01-05] MEDS ORDERED: AMIODARONE 150 MG in IV D5W 100 ML IV ONE (14:00)
== END 2023-01-05 13:50 | DRG 640 ==
LOC: ER 12:50 → MEDSG1 16:22 → TELE-TD 01-05 13:47
PROVIDERS: ADMIT Internal Medicine; ATTEND Internal Medicine
DX: E86.0 Dehydration (principal); G93.41 Metabolic encephalopathy; N17.0 Acute kidney failure with tubular necrosis; E44.0 Moderate protein-calorie malnutrition; R62.7 Adult failure to thrive; J44.9 Chronic obstructive pulmonary disease, unspecified; M19.90 Unspecified osteoarthritis, unspecified site; E11.9 Type 2 diabetes mellitus without complications; I10 Essential (primary) hypertension; M81.0 Age-related osteoporosis without current pathological fracture; F20.9 Schizophrenia, unspecified; E03.9 Hypothyroidism, unspecified; E88.09 Other disorders of plasma-protein metabolism, not elsewhere classified; I25.2 Old myocardial infarction; Z79.82 Long term (current) use of aspirin; Z79.899 Other long term (current) drug therapy
CPT/HCPCS: 36415; 71045-TC; 80048-TC; 80076-TC; 83735-TC; 84100-TC; 84484-TC; 85025-TC; 87081-TC; A4223; G0378; G0480; J0282; J7030; J7060

== ENCOUNTER 2023-06-27 13:28 | Inpatient (IN) | payer MEDICARE, OTHER ==
[~2023-06-27] VITALS: Ht 185.4 cm; Wt 74.8 kg
[~2023-06-27 13:28] MED LIST changes: -ALBU2.5V38 IH; -ATOR10TA PO; -AZIT250T13 PO; +CHOL100043 PO; +GUAI237L83 PO; +LEVO25TA7 PO; +LORA-259 PO; -MAG30ORA PO; -MULT-24 PO; +MULT-447 PO; -PRED50TA PO
[2023-06-27] MEDS ORDERED: BUSP5TAB3 PO (14:50)
[2023-06-27] MEDS ORDERED: DEXT15DR6 EACHEYE (14:50)
[2023-06-27] MEDS: IV NS 0.9% 1,000 ML BAG IV ONE (15:58)
[2023-06-27 16:17] LABS: ALANINE AMINOTRANSFERASE 13 U/L (12-78); ALBUMIN 3.4 g/dL (3.4-5.0); ALKALINE PHOSPHATASE 107 U/L (46-116); ASPARTATE AMINOTRANSFERASE 14 U/L (15-37); BILIRUBIN,DIRECT 0.1 mg/dL (0.0-0.2); BILIRUBIN,TOTAL 0.5 mg/dL (0.2-1.0); CALCIUM, SERUM 9.2 mg/dL (8.5-10.1); CARBON DIOXIDE 30 mmol/L (21-32); CHLORIDE 103 mmol/L (98-107); GLUCOSE 75 mg/dL (74-106); NT-PRO BNP 162 pg/mL (0-125); SODIUM SERUM 139 mmol/L (136-145); TOTAL PROTEIN, SERUM 6.8 g/dL (6.4-8.2); UREA NITROGEN, BLOOD 18 mg/dL (7-18)
[2023-06-27 16:29] LABS: BASOPHILS % (AUTO) 0.6 % (0.0-2.0); EOSINOPHILS # (AUTO) 0.2 K/uL (0.0-0.7); EOSINOPHILS % (AUTO) 2.4 % (0.0-6.0); HEMATOCRIT 47 % (39-51); HEMOGLOBIN 15.2 g/dL (13.5-17.5); LYMPHOCYTES # (AUTO) 1.5 K/uL (0.8-4.8); LYMPHOCYTES % (AUTO) 16.7 % (20.0-44.0); MEAN CORPUSCULAR HEMOGLOBIN 29 PG (26.0-33.0); MEAN CORPUSCULAR HGB CONC 33 g/dl (31.0-36.0); MEAN CORPUSCULAR VOLUME 89 fL (80-96); MONOCYTES # (AUTO) 0.6 K/uL (0.1-1.30); MONOCYTES % (AUTO) 7.2 % (2.0-12.0); NEUTROPHILS # (AUTO) 6.5 K/uL (1.8-8.9); NEUTROPHILS % (AUTO) 73.1 % (43.0-81.0); PLATELET COUNT (AUTO) 179 K/uL (150-450); RED BLOOD CELL COUNT(AUTO) 5.22 MIL/uL (4.5-6.0); RED CELL DISTRIBUTION WIDTH 14.4 % (11.5-15.0); WHITE BLOOD COUNT (AUTO) 8.9 K/uL (4.3-11.0)
[2023-06-27 16:51] LABS: APPEARANCE,URINE SLIGHTLY CLOUDY (CLEAR); BILIRUBIN,URINE NEGATIVE (NEGATIVE); BLOOD, URINE NEGATIVE Ery/uL (NEGATIVE); COLOR,URINE YELLOW (YELLOW); KETONES,URINE NEGATIVE (NEGATIVE); LEUKOCYTE ESTERASE ,URINE 3+ (NEGATIVE); NITRITE, URINE NEGATIVE (NEGATIVE); PH,URINE 7.5 (5.0-8.0); PROTEIN,URINE NEGATIVE (NEGATIVE); UGLUCOSE NEGATIVE (NEGATIVE); UROBILINOGEN,URINE 0.2 EU/dL (0.2)
[2023-06-27 17:11] LABS: RBC,URINE 0-2 /HPF (0-2); WBC,URINE 51-80 /HPF (0-3)
[2023-06-27 17:12] LABS: ADD URINE CULTURE YES; BACTERIA,URINE 3+ /HPF (None Seen); SQUAMOUS EPITHELIAL CELL,UR 0-2 /HPF (None Seen)
[2023-06-27] MEDS ORDERED: HYDROCODONE/APAP 5/325MG TABLET PO PRN (19:00)
[2023-06-27] MEDS ORDERED: Z GUARD REMEDY 4 OZ OINT TP PRN (19:00)
[2023-06-27] MEDS ORDERED: ACETAMINOPHEN 325 MG TABLET PO PRN (19:00)
[2023-06-27] MEDS ORDERED: MAGNESIUM HYDROXIDE 30 ML UDC PO PRN ×2 (19:00)
[2023-06-27] MEDS ORDERED: ONDANSETRON HCL/PF 4 MG/2 ML VIAL IVP PRN (19:00)
[2023-06-27] MEDS ORDERED: NA PHOS,M-B/NA PHOS,DI-BA 1 EA ENEMA RC PRN (19:00)
[2023-06-27] MEDS ORDERED: MAG HYDROX/AL HYDROX/SIMETH 30 ML UDC PO PRN (19:00)
[2023-06-27] MEDS ORDERED: BISACODYL SUPP (10 MG) 10 MG/SUPP.RECT SUPP.RECT RC PRN (19:00)
[2023-06-27] MEDS ORDERED: LORAZEPAM 1 MG TABLET PO PRN (19:00)
[2023-06-27] MEDS: CEFTRIAXONE 1GM BAG (ER ONLY) 1 GM/50 ML PIGGYBACK IV ONE (19:01)
[2023-06-27] MEDS: CEFTRIAXONE 1 G in IV D5W 50 ML IV SCH (19:02)
[2023-06-27] MEDS: TAMSULOSIN 0.4 MG CAP.SR.24H PO SCH (21:52)
[2023-06-27] MEDS: CHOLECALCIFEROL 1,000 UNIT TABLET (VIT D3) PO SCH (21:52)
[2023-06-28 06:47] LABS: BASOPHILS # (AUTO) 0.1 K/uL (0.0-0.2); EOSINOPHILS # (AUTO) 0.2 K/uL (0.0-0.7); EOSINOPHILS % (AUTO) 3.7 % (0.0-6.0); HEMATOCRIT 42 % (39-51); HEMOGLOBIN 13.8 g/dL (13.5-17.5); LYMPHOCYTES # (AUTO) 1.2 K/uL (0.8-4.8); LYMPHOCYTES % (AUTO) 18.2 % (20.0-44.0); MEAN CORPUSCULAR HEMOGLOBIN 30 PG (26.0-33.0); MEAN CORPUSCULAR HGB CONC 33 g/dl (31.0-36.0); MEAN CORPUSCULAR VOLUME 90 fL (80-96); MONOCYTES # (AUTO) 0.5 K/uL (0.1-1.30); MONOCYTES % (AUTO) 7.3 % (2.0-12.0); NEUTROPHILS # (AUTO) 4.6 K/uL (1.8-8.9); NEUTROPHILS % (AUTO) 69.8 % (43.0-81.0); PLATELET COUNT (AUTO) 166 K/uL (150-450); RED BLOOD CELL COUNT(AUTO) 4.68 MIL/uL (4.5-6.0); RED CELL DISTRIBUTION WIDTH 14.3 % (11.5-15.0); WHITE BLOOD COUNT (AUTO) 6.6 K/uL (4.3-11.0)
[2023-06-28 07:08] LABS: CHOLESTEROL 157 mg/dL (<200); HDL CHOLESTEROL 36 mg/dL (40-60); LDL 106 mg/dL (0-99); THYROID STIMULATING HORMONE 6.754 uIU/mL (0.358-3.74); TRIGLYCERIDES 126 mg/dL (30-150)
[2023-06-28 07:18] LABS: CALCIUM, SERUM 8.2 mg/dL (8.5-10.1); CARBON DIOXIDE 29 mmol/L (21-32); CHLORIDE 108 mmol/L (98-107); CREATININE 0.8 mg/dL (0.6-1.3); GLUCOSE 85 mg/dL (74-106); MAGNESIUM 1.9 mg/dL (1.8-2.4); PHOSPHORUS 3.4 mg/dL (2.5-4.9); POTASSIUM 4.3 mmol/L (3.5-5.1); SODIUM SERUM 140 mmol/L (136-145); UREA NITROGEN, BLOOD 15 mg/dL (7-18)
[2023-06-28] MEDS: busPIRone 5 MG TABLET PO SCH (08:27)
[2023-06-28] MEDS: FOLIC ACID 1 MG TABLET PO SCH (08:27)
[2023-06-28] MEDS: risperiDONE 1 MG TABLET PO SCH (08:27)
[2023-06-28] MEDS: ASPIRIN 81 MG TAB.CHEW PO SCH (08:27)
[2023-06-28] MEDS: PANTOPRAZOLE 40 MG TABLET.DR PO SCH (08:28)
[2023-06-28] MEDS: LEVOTHYROXINE SODIUM 25 MCG TABLET PO SCH (08:29)
[2023-06-28] MEDS: MEMANTINE HCL 5 MG TABLET PO SCH (08:29)
[2023-06-28] MEDS: MULTIVITAMINS,THERAGRAN 1 UDTAB TABLET PO SCH (08:29)
[2023-06-28] MEDS: POLYVINYL ALCOHOL 15 ML BOTTLE EACHEYE SCH (09:58)
[2023-06-28] MEDS: IV NS 0.9% 1,000 ML IV PRN (11:35)
[2023-06-28 20:00] VITALS: BP 139/71; TEMP 97.9; O2SAT 95
[2023-06-29 04:01] VITALS: BP 136/72; TEMP 98; O2SAT 96
[2023-06-29] MEDS: LEVOTHYROXINE SODIUM 50 MCG TABLET PO SCH (07:56)
[2023-06-29 08:00] VITALS: BP 124/74; TEMP 98.1; O2SAT 94
[2023-06-29] MEDS: ENSURE ENLIVE 237 ML LIQUID (VANILLA) PO SCH (09:00)
[2023-06-29 16:00] VITALS: BP 115/69; TEMP 98; O2SAT 96
[2023-06-29 20:00] VITALS: BP 133/66; TEMP 98.6; O2SAT 92
[2023-06-30 06:06] VITALS: BP 128/64; TEMP 98; O2SAT 93
[2023-06-30 08:00] VITALS: BP 141/86; TEMP 97.9; O2SAT 92
[2023-06-30] MEDS ORDERED: AMOX500C2 PO (09:47)
== END 2023-06-30 14:45 | DRG 689 ==
LOC: ER 13:30 → MEDSG1 20:39
PROVIDERS: ADMIT Nurse Practitioner Acute Care; ATTEND Nurse Practitioner Acute Care
DX: N39.0 Urinary tract infection, site not specified (principal); G92.8 Other toxic encephalopathy; D68.59 Other primary thrombophilia; E86.0 Dehydration; R62.7 Adult failure to thrive; E03.9 Hypothyroidism, unspecified; E11.9 Type 2 diabetes mellitus without complications; F20.9 Schizophrenia, unspecified; I10 Essential (primary) hypertension; I25.2 Old myocardial infarction; M19.90 Unspecified osteoarthritis, unspecified site; J44.9 Chronic obstructive pulmonary disease, unspecified; N40.0 Benign prostatic hyperplasia without lower urinary tract symptoms; G30.9 Alzheimer's disease, unspecified; F02.80 Dementia in other diseases classified elsewhere, unspecified severity, without behavioral disturbance, psychotic disturbance, mood disturbance, and anxiety; Z74.09 Other reduced mobility; B96.89 Other specified bacterial agents as the cause of diseases classified elsewhere; Z68.21 Body mass index [BMI] 21.0-21.9, adult; Z20.822 Contact with and (suspected) exposure to COVID-19
CPT/HCPCS: 36415; 71045-TC; 80048-TC; 80061-TC; 80076-TC; 81001; 83735-TC; 83880; 84100-TC; 84443-TC; 84484-TC; 85025-TC; 87040-TC; 87086-TC; 97112-TC; 97116-TC; 97530-TC; G0378; J0696; J3490; J7030; J7060